=== PATIENT | female | born 1960 | race Asian ===

== ENCOUNTER 2016-06-17 16:34 | Emergency (ER) | payer BC ==
[~2016-06-17] VITALS: Ht 160 cm; Wt 75.0 kg
[~2016-06-17 16:34] MED LIST: AMOX1TAB10 PO; GUAI473L22 PO; HYDR12.53
[2016-06-17 16:42] VITALS: Ht 160 cm; Wt 75.0 kg
[2016-06-17] MEDS ORDERED: LIDOCAINE/MYLANTA 40 ML BTL PO ONE (17:00)
[2016-06-17] MEDS ORDERED: RANI150T9 PO (17:35)
[2016-06-17] MEDS ORDERED: NAPR-685 PO (17:35)
--- NOTE | 2016-06-17 17:41 | ERD ---
ER Documentation Chief Complaint Date/Time DATE: 06/17/16 TIME: 17:38 Chief Complaint C/O PRESSURE LIKE PRESSURE TODAY. HPI This 85-year-old female presents with chest pain described as a pressure that feels like is an epigastric pain that feels like it wants to come up feels in her esophagus as well. She is not taking anything for his reflux but admits she has had heartburn before that feels kind of like this. She has no shortness of breath. Denies nausea vomiting. He can drink and should blood pressure was high at home in the 170s over the 90s. ROS All systems reviewed and are negative except as per history of present illness. Medications Home Meds Active Scripts Naproxen* (Naproxen*) 375 Mg Tablet, 375 MG PO BID Y for PAIN, #20 TAB Prov:ZENAIDA ROMAN DO 06/17/16 Ranitidine Hcl* (Zantac*) 150 Mg Tablet, 150 MG PO BID, #30 TAB Prov:ZENAIDA ROMAN DO 06/17/16 Guaifenesin-Codeine Phosphate* (Guaifenesin* AC Cough Syrup) 473 Ml Liquid, 10 ML PO Q6 Y for COUGH, #120 ML Prov:NEIL HIGGINS. DISH WASHER 05/15/16 Amoxicillin/Potassium Clav (Amox-Clav 875-125 mg Tablet) 875-125 mg Tab, 1 TAB PO BID for 7 Days, #14 TAB Prov:NEIL HIGGINS. DISH WASHER 05/15/16 Reported Medications Hydrochlorothiazide (Hydrochlorothiazide) 12.5 Mg Capsule 05/27/10 Allergies Allergies: Coded Allergies: erythromycin base (Verified Allergy, Mild, SWELLING OF LIPS AND TINITUS, ) tetracycline (Verified Allergy, Mild, SWELLING OF LIPS AND TINITUS, ) PMhx/Soc History of Surgery: No Anesthesia Reaction: No Hx Neurological Disorder: No Hx Respiratory Disorders: Yes (ASTHMA) Hx Cardiac Disorders: Yes (HIGH BLOOD PRESSURE, HIGH CHOLESTEROL) Hx Psychiatric Problems: No Hx Miscellaneous Medical Probl: Yes (HTN) Hx Alcohol Use: No Hx Substance Use: No Hx Tobacco Use: No Smoking Status: Never smoker Physical Exam Vitals Vital Signs Date Time Temp Pulse Resp B/P Pulse Ox O2 Delivery O2 Flow Rate FiO2 06/17/16 16:42 97.9 81 16 143/75 100 Physical Exam Const: [] No distress Head: Atraumatic Eyes: Normal Conjunctiva ENT: Normal External Ears, Nose and Mouth. Neck: Full range of motion..~ No meningismus. Resp: Clear to auscultation bilaterally Cardio: Regular rate and rhythm, no murmurs Abd: Soft, non tender, non distended. Normal bowel sounds Skin: No petechiae or rashes Back: No midline or flank tenderness Ext: No cyanosis, or edema Neur: Awake and alert Psych: Normal Mood and Affect Results 24 hrs Current Medications Medications (Trade) Dose Ordered Sig/Amanda Route PRN Reason Start Time Stop Time Status Last Admin Dose Admin Miscellaneous Medication (Gi Cocktail (2)) 40 ml ONCE ONCE PO 06/17/16 17:00 06/17/16 17:01 DC 06/17/16 17:02 Procedures/MDM Patient hitting that her chest pain might be related to esophageal reflux. Stated that she had had similar pain before she was given a GI cocktail emergency room which resolved her chest pain. Her EKG is completely normal as no signs of ischemia. She is asymptomatic emergency room and when to discharge with primary care follow-up and instructions to obtain an echocardiogram as an outpatient. Return precautions for any chest pain also given. EKG interpretation: Normal sinus rhythm rate of 75, normal axis, no ST or T- wave changes concerning for acute ischemia, normal intervals, normal EKG Departure Diagnosis: Primary Impression: Chest pain Additional Impression: GERD (gastroesophageal reflux disease) Condition: Stable Patient Instructions: Chest Pain, Uncertain Cause, Gerd (Adult) Referrals: LISA GUALLPA MD (PCP) Additional Instructions: Call your primary care doctor TOMORROW for an appointment during the next 1-2 days. Obtain a referral for and ECHOCARDIOGRAM. See the doctor sooner or return here if your condition worsens before your appointment time. ZENAIDA ROMAN DO Jun 17, 2016 17:41
== END 2016-06-17 17:48 | disposition home or self-care (01) ==
LOC: E/R 16:34
DX: R07.89 Other chest pain (principal); K21.9 Gastro-esophageal reflux disease without esophagitis; J45.909 Unspecified asthma, uncomplicated; I10 Essential (primary) hypertension
CPT/HCPCS: 93005

== ENCOUNTER → 2016-12-10 | Outpatient (CLI) | payer BC ==
[~2016-12-10] MED LIST changes: +NAPR-685 PO; +RANI150T9 PO
[2016-12-10 11:37] LABS: BASOPHIL # 0.1 10^3/ul (0.0-0.1); BASOPHILS % 0.7 % (0.0-2.0); EOSINOPHILS # 0.2 10^3/ul (0.0-0.5); EOSINOPHILS % 3.3 % (0.0-7.0); HEMATOCRIT 38.2 % (37.0-47.0); LYMPHOCYTES # 2.7 10^3/ul (0.8-2.9); LYMPHOCYTES % 40.3 % (15.0-51.0); MEAN CORPUSCULAR HEMOGLOBIN 20.7 pg (29.0-33.0); MEAN CORPUSCULAR HGB CONC 31.4 g/dl (32.0-37.0); MEAN CORPUSCULAR VOLUME 65.9 fl (82.0-101.0); MEAN PLATELET VOLUME 10.7 fl (7.4-10.4); MONOCYTE # 0.4 10^3/ul (0.3-0.9); MONOCYTES % 6.3 % (0.0-11.0); NEUTROPHIL # 3.3 10^3/ul (1.6-7.5); NEUTROPHILS % 49.3 % (39.0-77.0); PLATELET COUNT 338 10^3/UL (140-415); RED CELL DISTRIBUTION WIDTH 15.9 % (11.5-14.5); WHITE BLOOD COUNT 6.7 10^3/ul (4.8-10.8)
[2016-12-10 12:08] LABS: ALBUMIN 4.5 g/dl (3.3-4.9); ALBUMIN/GLOBULIN RATIO 1.36; CALCIUM 9.2 mg/dl (8.4-10.2); CHOL/HDL RATIO 5.7 RATIO; CREATININE 0.72 mg/dl (0.44-1.00); POTASSIUM 3.6 mmol/L (3.5-5.1); TOTAL PROTEIN 7.8 g/dl (6.1-8.1)
== END | disposition home or self-care (01) ==
LOC: LAB 10:41
PROVIDERS: ATTEND Internal Medicine
DX: E78.5 Hyperlipidemia, unspecified (principal); R73.03 Prediabetes
CPT/HCPCS: 80053; 80061; 83036; 85025

== ENCOUNTER 2017-01-18 16:48 | Inpatient (IN) | payer BC ==
[~2017-01-18] VITALS: Ht 142.2 cm; Wt 68.5 kg
[2017-01-18] MEDS ORDERED: ASPIRIN 81 MG TAB PO STA (17:22)
[2017-01-18] MEDS ORDERED: NITROGLYCERIN 2% 1 GM OINT PKT TD STA (17:22)
[2017-01-18] MEDS ORDERED: NITROGLYCERIN (SL) 0.4 MG TAB SL PRN (17:30)
[2017-01-18 17:44] LABS: BASOPHIL # 0.1 10^3/ul (0.0-0.1); BASOPHILS % 0.9 % (0.0-2.0); EOSINOPHILS # 0.1 10^3/ul (0.0-0.5); EOSINOPHILS % 1.6 % (0.0-7.0); HEMATOCRIT 37.7 % (37.0-47.0); HEMOGLOBIN 11.9 g/dl (12.0-16.0); LYMPHOCYTES # 2.1 10^3/ul (0.8-2.9); LYMPHOCYTES % 29.8 % (15.0-51.0); MEAN CORPUSCULAR HEMOGLOBIN 20.7 pg (29.0-33.0); MEAN CORPUSCULAR HGB CONC 31.6 g/dl (32.0-37.0); MEAN CORPUSCULAR VOLUME 65.5 fl (82.0-101.0); MEAN PLATELET VOLUME 10.8 fl (7.4-10.4); MONOCYTE # 0.4 10^3/ul (0.3-0.9); NEUTROPHILS % 61.4 % (39.0-77.0); PLATELET COUNT 350 10^3/UL (140-415); RED BLOOD COUNT 5.76 10^6/ul (4.20-5.40); RED CELL DISTRIBUTION WIDTH 16.1 % (11.5-14.5); WHITE BLOOD COUNT 7.1 10^3/ul (4.8-10.8)
--- NOTE | 2017-01-18 17:45 | RADRPT ---
PROCEDURE: XR Chest. CLINICAL INDICATION: chest pain TECHNIQUE: Single frontal view of the chest was obtained COMPARISON: 05/15/2016 FINDINGS: The heart and mediastinum are within normal limits. The lungs are clear. There is no pleural effusion or pneumothorax. RPTAT: AA IMPRESSION: No acute disease. .Primitivo Cortez MD, MD Date Time Electronically viewed and signed by .Primitivo Cortez MD, on 01/18/2017 17:45 .S/
[2017-01-18] MEDS ORDERED: ATOR40TA68 PO (18:01)
[2017-01-18] MEDS ORDERED: HYDR12.58 PO (18:01)
[2017-01-18] MEDS ORDERED: LOSA50TA6 PO (18:01)
[2017-01-18] MEDS ORDERED: AMLO5TAB4 PO (18:02)
[2017-01-18 18:12] LABS: CALCIUM 9.5 mg/dl (8.4-10.2); CREATINE KINASE 189 IU/L (23-200); CREATININE 0.78 mg/dl (0.44-1.00); POTASSIUM 3.9 mmol/L (3.5-5.1)
[2017-01-18 18:25] LABS: CK-MB 1.39 ng/ml (0.0-2.4)
[2017-01-18 18:27] LABS: TROPONIN-I < 0.012 ng/ml (0.00-0.12)
[2017-01-18] MEDS ORDERED: ACETAMINOPHEN 325 MG TAB PO PRN (19:00)
[2017-01-18] MEDS ORDERED: ONDANSETRON 4 MG INJ IV PRN (19:00)
--- NOTE | 2017-01-18 19:05 | ERA ---
ER Documentation Chief Complaint Date/Time DATE: 01/18/17 TIME: 19:03 Chief Complaint Complains of chest pain / pressure with HTN HPI Patient is a 56-year-old female with hypertension who presents with chest pain. The chest pain started last night. The patient was still having chest pain today which is left-sided and pressure-like. The pain comes and goes. The patient has had no treatment as of yet. The patient is working as a nurse here at the hospital. Upon review of old medical records the patient has multiple visits to the ER for various complaints. The patient's primary doctor is Dr. Matias. ROS All systems reviewed and are negative except as per history of present illness. Medications Home Meds Reported Medications Amlodipine Besylate* (Norvasc*) 5 Mg Tablet, 5 MG PO DAILY, TAB 01/18/17 Atorvastatin* (Atorvastatin*) 40 Mg Tablet, 40 MG PO QHS, #30 TAB 01/18/17 Losartan Potassium* (Losartan Potassium*) 50 Mg Tablet, 50 MG PO DAILY, TAB 01/18/17 Hydrochlorothiazide* (Hydrochlorothiazide*) 12.5 Mg Tablet, 12.5 MG PO DAILY, # 30 TAB 01/18/17 Discontinued Reported Medications Hydrochlorothiazide (Hydrochlorothiazide) 12.5 Mg Capsule 05/27/10 Discontinued Scripts Naproxen* (Naproxen*) 375 Mg Tablet, 375 MG PO BID Y for PAIN, #20 TAB Prov:ABELZENAIDA DO 06/17/16 Ranitidine Hcl* (Zantac*) 150 Mg Tablet, 150 MG PO BID, #30 TAB Prov:ZENAIDA ROMAN DO 06/17/16 Guaifenesin-Codeine Phosphate* (Guaifenesin* AC Cough Syrup) 473 Ml Liquid, 10 ML PO Q6 Y for COUGH, #120 ML Prov:NEIL HIGGINS. MEDICAL CONCIERGE 05/15/16 Amoxicillin/Potassium Clav (Amox-Clav 875-125 mg Tablet) 875-125 mg Tab, 1 TAB PO BID for 7 Days, #14 TAB Prov:NEIL HIGGINS. MEDICAL CONCIERGE 05/15/16 Allergies Allergies: Coded Allergies: erythromycin base (Verified Allergy, Mild, SWELLING OF LIPS AND TINITUS, ) tetracycline (Verified Allergy, Mild, SWELLING OF LIPS AND TINITUS, 01/18/17 ) PMhx/Soc History of Surgery: No Anesthesia Reaction: No Hx Neurological Disorder: No Hx Respiratory Disorders: Yes (ASTHMA) Hx Cardiac Disorders: Yes (HIGH BLOOD PRESSURE, HIGH CHOLESTEROL) Hx Psychiatric Problems: No Hx Miscellaneous Medical Probl: Yes (HTN) Hx Alcohol Use: No Hx Substance Use: No Hx Tobacco Use: No Smoking Status: Never smoker FmHx Family History: coronary disease Physical Exam Vitals Vital Signs Date Time Temp Pulse Resp B/P Pulse Ox O2 Delivery O2 Flow Rate FiO2 01/18/17 18:33 98.6 77 20 131/72 96 Room Air 01/18/17 17:30 Nasal Cannula 1 01/18/17 16:52 98.6 96 20 179/85 95 Physical Exam Const: No acute distress Head: Atraumatic Eyes: Normal Conjunctiva ENT: Normal External Ears, Nose and Mouth. Neck: Full range of motion..~ No meningismus. Resp: Clear to auscultation bilaterally Cardio: Regular rate and rhythm, no murmurs Abd: Soft, non tender, non distended. Normal bowel sounds Skin: No petechiae or rashes Back: No midline or flank tenderness Ext: No cyanosis, or edema Neur: Awake and alert Psych: Normal Mood and Affect Result Diagram: 01/18/17 1730 01/18/17 173 Results 24 hrs Laboratory Tests Test 01/18/17 17:30 White Blood Count 7.110^3/ul Red Blood Count 5.7610^6/ul Hemoglobin 11.9g/dl Hematocrit 37.7% Mean Corpuscular Volume 65.5fl Mean Corpuscular Hemoglobin 20.7pg Mean Corpuscular Hemoglobin Concent 31.6g/dl Red Cell Distribution Width 16.1% Platelet Count 81548^3/UL Mean Platelet Volume 10.8fl Neutrophils % 61.4% Lymphocytes % 29.8% Monocytes % 6.0% Eosinophils % 1.6% Basophils % 0.9% Nucleated Red Blood Cells % 0.0/100WBC Neutrophils # (Manual) 4.310^3/ul Lymphocytes # 2.110^3/ul Monocytes # 0.410^3/ul Eosinophils # 0.110^3/ul Basophils # 0.110^3/ul Nucleated Red Blood Cells # 0.010^3/ul Sodium Level 143mmol/L Potassium Level 3.9mmol/L Chloride Level 104mmol/L Carbon Dioxide Level 26mmol/L Anion Gap 17 Blood Urea Nitrogen 12mg/dl Creatinine 0.78mg/dl Glucose Level 119mg/dl Calcium Level 9.5mg/dl Creatine Kinase 189IU/L Creatine Kinase Index 0.7 Creatinine Kinase MB (Mass) 1.39ng/ml Troponin I < 0.012ng/ml Current Medications Medications (Trade) Dose Ordered Sig/Amanda Route PRN Reason Start Time Stop Time Status Last Admin Dose Admin Aspirin (Aspirin) 162 mg ONCE STAT PO 01/18/17 17:22 01/18/17 17:23 DC 01/18/17 17:48 Nitroglycerin (Nitroglycerin 2% Oint) 1 inch ONCE STAT TD 01/18/17 17:22 01/18/17 17:23 DC 01/18/17 17:48 Nitroglycerin (Nitroglycerin (Sl Tab) 0.4 Mg) 1 tab Q5M UP TO 3 DOSES PRN SL CHEST PAIN 01/18/17 17:30 01/18/17 17:49 Ondansetron HCl (Zofran Inj) 4 mg ER BRIDGE PRN IV NAUSEA AND/OR VOMITING 01/18/17 19:00 01/19/17 18:59 Acetaminophen (Tylenol Tab) 650 mg ER BRIDGE PRN PO MILD PAIN/FEVER 01/18/17 19:00 01/19/17 18:59 Procedures/MDM EKG #1 read by me: Rate/Rhythm: Regular rate and rhythm at a rate of 89 Intervals: Normal Impression: No evidence of ischemia or arrhythmia EKG #2 read by me: Rate/Rhythm: Regular rate and rhythm at a rate of 79 Intervals: Normal Impression: No evidence of ischemia or arrhythmia Chest x-ray shows no obvious pneumonia or pneumothorax per radiology. Patient is a 56-year-old female with hypertension who presents with chest pain. I am concerned about possible acute coronary syndrome. The patient was given aspirin nitroglycerin. I doubt pneumonia, pneumothorax, pulmonary embolism, or aortic dissection. The patient will be admitted to the care of the primary doctor Dr. Matias. The patient will be admitted to a telemetry bed. Departure Diagnosis: Primary Impression: Chest pain Qualified Code: R07.9 - Chest pain, unspecified type Condition: ASHLEIGH Lyon MD Jan 18, 2017 19:05
[2017-01-18 21:00] VITALS: TEMP 98.6
[2017-01-19] VITALS (12 sets, daily range): BP systolic 108–131; BP diastolic 58–73; PULSE 63–83; RESP 18–20; Ht 142.2 cm; Wt 68.5 kg
[2017-01-19] MEDS ORDERED: NITROGLYCERIN (SL) 0.4 MG TAB SL PRN (00:30)
[2017-01-19] MEDS ORDERED: morphine 4 MG/ML VIAL IV PRN (00:30)
[2017-01-19] MEDS ORDERED: ZOLPIDEM 5 MG TAB PO PRN (00:30)
[2017-01-19] MEDS ORDERED: ATORVASTATIN 40 MG TAB PO SCH (00:45)
[2017-01-19 07:09] LABS: BASOPHIL # 0.1 10^3/ul (0.0-0.1); BASOPHILS % 0.7 % (0.0-2.0); EOSINOPHILS # 0.3 10^3/ul (0.0-0.5); EOSINOPHILS % 2.7 % (0.0-7.0); HEMATOCRIT 36.1 % (37.0-47.0); HEMOGLOBIN 11.4 g/dl (12.0-16.0); LYMPHOCYTES # 2.9 10^3/ul (0.8-2.9); LYMPHOCYTES % 29.5 % (15.0-51.0); MEAN CORPUSCULAR HEMOGLOBIN 20.6 pg (29.0-33.0); MEAN CORPUSCULAR HGB CONC 31.6 g/dl (32.0-37.0); MEAN CORPUSCULAR VOLUME 65.3 fl (82.0-101.0); MEAN PLATELET VOLUME 10.9 fl (7.4-10.4); MONOCYTE # 0.7 10^3/ul (0.3-0.9); MONOCYTES % 6.7 % (0.0-11.0); NEUTROPHILS % 60.1 % (39.0-77.0); PLATELET COUNT 335 10^3/UL (140-415); RED BLOOD COUNT 5.53 10^6/ul (4.20-5.40); RED CELL DISTRIBUTION WIDTH 16.9 % (11.5-14.5); WHITE BLOOD COUNT 9.7 10^3/ul (4.8-10.8)
[2017-01-19 07:31] LABS: CALCIUM 8.7 mg/dl (8.4-10.2); CREATININE 0.74 mg/dl (0.44-1.00); MAGNESIUM 2.4 mg/dl (1.7-2.5); POTASSIUM 3.7 mmol/L (3.5-5.1)
[2017-01-19 08:21] LABS: CREATINE KINASE 213 IU/L (23-200)
[2017-01-19] MEDS: ASPIRIN (EC) 81 MG TAB PO SCH (08:39)
[2017-01-19] MEDS: ACETAMINOPHEN 500 MG TAB PO PRN ×2 (08:39→16:34)
[2017-01-19 08:40] LABS: CK-MB 1.07 ng/ml (0.0-2.4)
[2017-01-19] MEDS: HYDROCHLOROTHIAZIDE 12.5 MG CAP PO SCH (08:40)
[2017-01-19] MEDS: LOSARTAN 50 MG TAB PO SCH (08:40)
[2017-01-19] MEDS: AMLODIPINE 5 MG TAB PO SCH (08:40)
[2017-01-19] MEDS: ENOXAPARIN 30 MG/0.3 ML SYG SC SCH (08:44)
[2017-01-19 09:00] LABS: TROPONIN-I < 0.012 ng/ml (0.00-0.12)
--- NOTE | 2017-01-19 09:40 | RADRPT ---
Vent Rate: 73 bpm RR Interval: 0 msec [place] Interval: 144 msec QRS Duration: 82 msec QT Interval: 428 msec QTC Interval: 471 msec P-R-T [place]: 22 - 17 - 21 degrees Normal sinus rhythm Septal infarct , age undetermined Abnormal ECG Electronically Signed By: Enrike Hernández [id number]
--- NOTE | 2017-01-19 14:13 | CONS ---
Date/Time of Note Date/Time of Note DATE: 01/19/17 TIME: 14:02 INPATIENT CONSULTATION REQUESTING PHYSICIAN: Dr. Matias REASON FOR CONSULT: Chest pain HISTORY OF PRESENT ILLNESS: 56-year-old [place] female with history 1. Hypertension. 2. Adult onset asthma. 3. Hyperlipidemia. 4. Dyspnea on exertion. 5. Obesity. 6. Prediabetes. Patient with a long history of several months of atypical pinpoint nonexertional nonpleuritic chest pains left-sided in nature lasting for seconds. No exertional pleuritic component as mentioned no associated dyspnea or diaphoresis. She had an episode while at work here at [employer] [facility] [facility] [employer] and her coworkers noticed that she was in pain checked her blood pressure which was elevated and brought her to the emergency room. She did see my associate Dr. Fernandez in August of this year but never followed up for stress testing or further workup. She currently feels well denies any chest pains dyspnea palpitations PND orthopnea syncope near syncope or leg edema. She admits to not exercising. RISK FACTORS Pertinent for postmenopausal, prediabetes, hypertension, hyperlipidemia, there is no gout smoking or family history of early heart disease. PAST MEDICAL HISTORY: 1. Hypertension. 2. Adult onset asthma. 3. Hyperlipidemia. 4. Prediabetes. 5. Obesity. PAST SURGICAL HISTORY: D&C over 20 years ago. MEDICATIONS: Was on hydrochlorothiazide 12.5 mg a day, losartan 50 mg a day, Lipitor 80 mg a day, amlodipine 5 mg a day, baby aspirin, and currently is on Lovenox 30 mg subcu daily. ALLERGIES: Erythromycin, tetracycline. 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 FAMILY HISTORY: Denies any early coronary disease family history. REVIEW OF SYSTEMS: Patient denied any fevers, chills, weight loss, nausea, vomiting, diarrhea, constipation, cough, hemoptysis, dysuria, hematuria, nocturia, any neurologic symptoms, headache, any PND, orthopnea, leg edema, or palpitations. All other review of systems were normal. Patient does complain of dyspnea and exertion. 14 point review of systems otherwise normal. PHYSICAL EXAMINATION: Vital signs please see chart. HEENT; no JVD, no HJR, carotids 2 over 4+ without bruits. Chest: Clear to auscultation and percussion, no rales, wheezes or rhonchi. Cardiac: S4, S1, S2 with normal physiologic splitting, 1/6 systolic ejection murmur, no rub click or diastolic murmur noted. Abdominal: Bowel sounds positive, soft nontender, no abdominal bruit noted, no hepatosplenomegaly. Extremities: No cyanosis, clubbing, or edema. Negative Homans sign or palpable cords. Pulses: 2/4 pulses diffusely no bruits noted. ADDITIONAL DATA: Normal CBC, electrolytes, BUN, creatinine, hemoglobin A1c elevated 6.3, troponin 2 negative. Chest x-ray from 18 January cardiomegaly no heart failure no wide mediastinum. Telemetry sinus rhythm no other ectopy. EKG from this morning revealed sinus rhythm poor R-wave progression no acute changes however from prior EKGs from 18 January. ASSESSMENT: 1. Atypical chest pain. 2. Hypertension. 3. Hyperlipidemia on statin. 4. Prediabetes. 5. Obesity. 6. Adult onset asthma. Patient symptoms appear fairly atypical however she has multiple risk factors and is not returned to the office to follow-up with her bran mixer Dr. Fernandez. At this point I would continue on her current regimen check a fasting lipid panel on her and check an echocardiogram and a Lexiscan stress test. Case has been discussed with Dr. Matias. PLAN: 1. 2D echocardiogram. 2. Lexiscan stress test tomorrow. 3. Continue aspirin statin hydrochlorothiazide losartan and amlodipine. 4. Check fasting lipid panel LDL should be less than 70 with diabetes. MEGHAN MALAGON MD Jan 19, 2017 14:12
--- NOTE | 2017-01-19 14:34 | RADRPT ---
PROCEDURE: US DVT. CLINICAL INDICATION: Left lower extremity pain and swelling. TECHNIQUE: Multiple longitudinal and transverse images of the left lower extremity veins were obta ined with sands scale and color Doppler imaging. 2D grayscale measurements with compression, color D oppler flow, and augmentation was performed. The calf veins were interrogated as well. COMPARISON: No prior studies are available for comparison. FINDINGS: The left common femoral, superficial femoral and popliteal veins are normally compressible throughou t. Color flow demonstrates normal filling of the vessel. Normal waveforms are visualized and there is normal response to augmentation. The calf veins are visualized and are equally unremarkable. IMPRESSION: 1. No evidence of a deep vein thrombosis involving the left lower extremity. RPTAT: QQ .Sal Sanches MD, MD Date Time Electronically viewed and signed by .Sal Sanches MD, MD on 01/19/2017 14:34 .d/
[2017-01-19] MEDS ORDERED: MAGNESIUM HYDROXIDE 30ML CUP PO PRN (17:00)
--- NOTE | 2017-01-19 17:02 | HP ---
DATE OF ADMISSION: 01/18/2017 Patient is a 56-year-old who is a known hypertensive, recently found to be prediabetic, presenting with a 1-week history of recurrent left-sided chest discomfort described as pressure. It started a week ago, along with pain in the left leg, and yesterday it got worse. The patient states it radiates to the back, with no associated shortness of breath, but some palpitations. It lasts about 30 seconds or so. The patient was seen in the emergency room and was admitted. The patient has had prior evaluations in the emergency room for atypical chest pain. MEDICATIONS: Include Norvasc 5 mg daily, atorvastatin 40 mg p.o. daily. The patient has not been compliant with taking statins. Losartan 50 mg daily, hydrochlorothiazide 12.5 mg a day, aspirin 81 mg p.o. daily. ALLERGIES: TO ERYTHROMYCIN AND TETRACYCLINE. REVIEW OF SYSTEMS: Head: No history of headaches, focal weakness or numbness. EYES: No blurry vision or glaucoma. ENT: Noncontributory. NECK: No history of thyroid disease. CHEST: Prior history of bronchial asthma. HEART: History of atypical chest pain. The patient has seen Dr. Fernandez for a cardiology evaluation. The patient was due to have a stress test, but has not had it done, as was unable to make it. GASTROINTESTINAL: No constipation, diarrhea, change of bowel habits. GENITOURINARY: No dysuria, hematuria, kidney stones. FAMILY HISTORY: Mother has asthma, had stroke at age 54. The patient has four brothers and three sisters, all healthy. One sister has thalassemia. PHYSICAL EXAMINATION: The patient is an average-built female, who is presently in no acute distress. Does not appear anxious. VITAL SIGNS: Temperature 97.7, blood pressure 127/66, pulse ox 96 percent on room air. HEENT: Head normocephalic. No pallor, cyanosis, or icterus. Tongue is moist. NECK: Supple. No thyromegaly. No adenopathy. CHEST: Decreased breath sounds at bases. HEART: S1, S2. No definite gallops. ABDOMEN: Soft, nontender. No hepatosplenomegaly. EXTREMITIES: No edema. Homans sign is negative. NEUROLOGIC: No localizing or lateralizing signs. PELVIC: Deferred per patient request. BREAST: Deferred per patient request. DATA: WBC count 7.1, hematocrit 37.7, MCV of 65.5, platelet count 350,000. Sodium 143, potassium 3.9. CK 189 on 07/02. Troponin x2 less than 0.012. EKG shows normal sinus rhythm, septal infarct, age undetermined. The patient also had a recent lipid panel on 12/10 that showed cholesterol 223, LDL of 163, HDL 39. Hemoglobin A1c 6.3. The patient had been advised at the time to take statins on regular basis. IMPRESSION: 1. Atypical chest pain. Patient has risk factors for coronary artery disease, with still persistent hyperlipidemia. 2. Hypertension. 3. Prediabetes. PLAN: We will DC atorvastatin, start the patient on Crestor for better lipid control. Continue aspirin. We will also obtain a Doppler study of the left lower extremity to rule out DVT, as her initial presentation was left lower extremity pain along with chest pain. CRP has been ordered. Results pending. Will request [____] for cardiology evaluation. The patient likely will need a stress test. Dictated By: Beny Matias MD /dorothea/shaw /Document#: [id number]
[2017-01-19] MEDS ORDERED: ATORVASTATIN 80 MG TAB PO SCH (21:00)
[2017-01-19] MEDS: DOCUSATE SODIUM 100 MG CAP PO SCH (21:14)
[2017-01-20] VITALS (9 sets, daily range): BP systolic 128–172; BP diastolic 64–78; PULSE 66–101; RESP 17–18
[2017-01-20 07:20] LABS: BASOPHIL # 0.1 10^3/ul (0.0-0.1); BASOPHILS % 1.1 % (0.0-2.0); EOSINOPHILS # 0.3 10^3/ul (0.0-0.5); EOSINOPHILS % 3.6 % (0.0-7.0); HEMATOCRIT 38.1 % (37.0-47.0); HEMOGLOBIN 11.6 g/dl (12.0-16.0); LYMPHOCYTES # 2.7 10^3/ul (0.8-2.9); LYMPHOCYTES % 36.7 % (15.0-51.0); MEAN CORPUSCULAR HEMOGLOBIN 19.9 pg (29.0-33.0); MEAN CORPUSCULAR HGB CONC 30.4 g/dl (32.0-37.0); MEAN CORPUSCULAR VOLUME 65.4 fl (82.0-101.0); MEAN PLATELET VOLUME 10.8 fl (7.4-10.4); MONOCYTE # 0.6 10^3/ul (0.3-0.9); MONOCYTES % 7.4 % (0.0-11.0); NEUTROPHILS % 50.9 % (39.0-77.0); PLATELET COUNT 315 10^3/UL (140-415); RED BLOOD COUNT 5.83 10^6/ul (4.20-5.40); RED CELL DISTRIBUTION WIDTH 16.9 % (11.5-14.5); WHITE BLOOD COUNT 7.4 10^3/ul (4.8-10.8)
[2017-01-20 08:28] LABS: CALCIUM 9.3 mg/dl (8.4-10.2); CHOL/HDL RATIO 4.3 RATIO; CREATININE 0.64 mg/dl (0.44-1.00); MAGNESIUM 2.2 mg/dl (1.7-2.5); POTASSIUM 4.3 mmol/L (3.5-5.1)
[2017-01-20 08:32] LABS: THYROID STIMULATING HORMONE 2.38 MIU/L (0.465-4.680)
[2017-01-20] MEDS ORDERED: REGADENOSON 0.4 MG/5 ML SYG ONE ×2 (08:34→10:21)
--- NOTE | 2017-01-20 09:18 | RADRPT ---
Vent Rate: 76 bpm RR Interval: 0 msec [place] Interval: 142 msec QRS Duration: 82 msec QT Interval: 410 msec QTC Interval: 461 msec P-R-T [place]: 47 - 68 - 53 degrees Sinus rhythm with frequent premature ventricular complexes Otherwise normal ECG Electronically Signed By: Enrike Hernández [id number]
--- NOTE | 2017-01-20 11:00 | CONS ---
Date/Time of Note Date/Time of Note DATE: 01/20/17 TIME: 10:57 Assessment/Plan Assessment/Plan Chief Complaint/Hosp Course 56 yof w/ htn, hld, and pre-dM who presented with atypical chest pain. Her symptoms were sharp chest pain that lasted seconds. Seems more likely to be musculoskeletal. She is currently pain free. Plan for lexiscan today. If negative, may be discharged from a cardiac standpoint. continue meds. Problems: Consultation Date/Type/Reason Admit Date/Time Jan 18, 2017 at 23:50 Type of Consultation: cardiololgy Reason for Consultation chest pain 24 HR Interval Summary Free Text/Dictation Denies cp or sob. Exam/Review of Systems Vital Signs Vitals Vital Signs Date Time Temp Pulse Resp B/P Pulse Ox O2 Delivery O2 Flow Rate FiO2 01/20/17 08:04 85 01/20/17 07:22 98.3 18 172/78 98 01/18/17 23:15 Room Air 01/18/17 17:30 1 Intake and Output 01/19/17 01/19/17 01/20/17 15:00 23:00 07:00 Intake Total 900 ml 500 ml Balance 900 ml 500 ml Exam Constitutional: alert, No distress Respiratory: clear to auscultation Cardiovascular: regular rate and rhythm, No systolic murmur Extremities: No edema Results Result Diagram: 01/20/17 0635 01/20/17 0635 Results 24 hrs Laboratory Tests Test 01/20/17 06:35 White Blood Count 7.4 # Red Blood Count 5.83 H Hemoglobin 11.6 L Hematocrit 38.1 Mean Corpuscular Volume 65.4 L Mean Corpuscular Hemoglobin 19.9 L Mean Corpuscular Hemoglobin Concent 30.4 L Red Cell Distribution Width 16.9 H Platelet Count 315 Mean Platelet Volume 10.8 H Neutrophils % 50.9 Lymphocytes % 36.7 Monocytes % 7.4 Eosinophils % 3.6 Basophils % 1.1 Nucleated Red Blood Cells % 0.0 Neutrophils # (Manual) 3.8 Lymphocytes # 2.7 Monocytes # 0.6 Eosinophils # 0.3 Basophils # 0.1 Nucleated Red Blood Cells # 0.0 Sodium Level 142 Potassium Level 4.3 Chloride Level 104 Carbon Dioxide Level 26 Anion Gap 16 Blood Urea Nitrogen 14 Creatinine 0.64 Glucose Level 109 Calcium Level 9.3 Magnesium Level 2.2 Troponin I < 0.012 Triglycerides Level 121 Cholesterol Level 165 LDL Cholesterol, Calculated 103 HDL Cholesterol 38 Cholesterol/HDL Ratio 4.3 Thyroid Stimulating Hormone (TSH) 2.380 Thyroxine (T4) 7.5 Medications Medications Current Medications Aspirin (Halfprin) 81 mg DAILY PO Last administered on 01/19/17 08:39; Admin Dose 81 MG; Start 01/19/17 at 09:00 Zolpidem Tartrate (Ambien) 5 mg HS PRN PO INSOMNIA; Start 01/19/17 at 00:30 Morphine Sulfate (morphine) 4 mg Q4H PRN IV SEVERE PAIN LEVEL 7-10; Start at 00:30 Enoxaparin Sodium (Lovenox) 30 mg DAILY SC ; Start 01/19/17 at 09:00 Nitroglycerin (Nitroglycerin (Sl Tab) 0.4 Mg) 1 tab Q5M PRN SL ANGINA; Start at 00:30 Amlodipine Besylate (Norvasc) 5 mg DAILY PO Last administered on 01/19/17 08:40 ; Admin Dose 5 MG; Start 01/19/17 at 09:00 Hydrochlorothiazide (Hydrochlorothiazide) 12.5 mg DAILY PO Last administered on 01/19/17 08:40; Admin Dose 12.5 MG; Start 01/19/17 at 09:00 Losartan Potassium (Cozaar) 50 mg DAILY PO Last administered on 01/19/17 08:40 ; Admin Dose 50 MG; Start 01/19/17 at 09:00 Acetaminophen (Tylenol Tab) 500 mg Q4H PRN PO PAIN AND OR ELEVATED TEMP Last administered on 01/19/17 16:34; Admin Dose 500 MG; Start 01/19/17 at 08:30 Atorvastatin Calcium (Lipitor) 80 mg HS PO Last administered on 01/19/17 21:14 ; Admin Dose 80 MG; Start 01/19/17 at 21:00 Docusate Sodium (Colace) 100 mg BID PO Last administered on 01/19/17 21:14; Admin Dose 100 MG; Start 01/19/17 at 21:00 Magnesium Hydroxide (Milk Of Mag) 30 ml QHS PRN PO constipation; Start 01/19/17 at 17:00 LORENZO ARANGO Jan 20, 2017 11:00
--- NOTE | 2017-01-20 11:23 | QN ---
Documentation Comment Brief Lexiscan Report - see dictation for full report Indication - chest pain Baseline ECG - nsr @ 88, no ischemic ST changes Regadenoson was infused per protocol. Pt had chest pressure (4/10), which was different than her chief complaint. Pt also felt cold and had abdominal discomfort. She developed sinus tachycardia to [address] 0[address] depression in leads II, III, V3-V6. Her symptoms, tachycardia and ECG changes all resolved during recovery. Impression: 1. Pt had non-specific symptoms during the regadenoson infusion. No ischemic ST changes noted. 2. See separate report from nuclear cardiology regarding interpretation of nuclear images. LORENZO ARANGO Jan 20, 2017 11:21
--- NOTE | 2017-01-20 11:35 | RADRPT ---
PROCEDURE: Lexiscan myocardial perfusion study CLINICAL INDICATION: 56 -year-old patient complaining of chest pain. TECHNIQUE: Lexiscan 0.4 mg intravenously separate acquisition gated myocardial perfusion SPECT usi ng Tc 99m Myoview 30.0 mCi intravenously at stress and Tc-99m Myoview, 10.0 mCi intravenously at res t was performed using the rest/stress sequence. Poststress Myoview SPECT images were obtained in th e supine position. COMPARISON: No prior studies. FINDINGS: Perfusion images reveal no evidence of perfusion defects. Lexiscan post stress gated SPECT images demonstrate no wall motion abnormalities. IMPRESSION: 1. No evidence of perfusion defects. 2. No wall motion abnormalities. 3. The left ventricle ejection fraction at stress is greater than 70%. RPTAT: QQ .Loretta Seo MD, MD Date Time Electronically viewed and signed by .Loretta Seo MD, MD on 01/20/2017 11:34 .L/
[2017-01-20] MEDS: HYDROCHLOROTHIAZIDE 12.5 MG CAP PO SCH (11:44)
[2017-01-20] MEDS: ASPIRIN (EC) 81 MG TAB PO SCH (11:44)
[2017-01-20] MEDS: DOCUSATE SODIUM 100 MG CAP PO SCH (11:44)
[2017-01-20] MEDS: ENOXAPARIN 30 MG/0.3 ML SYG SC SCH (11:44)
[2017-01-20] MEDS: LOSARTAN 50 MG TAB PO SCH (11:45)
[2017-01-20] MEDS: AMLODIPINE 5 MG TAB PO SCH (11:45)
[2017-01-20] MEDS ORDERED: ASPI-664 PO (14:54)
--- NOTE | 2017-01-20 18:22 | DS ---
DATE OF ADMISSION: 01/18/2017 DATE OF DISCHARGE: 01/20/2017 FINAL DIAGNOSES: 1. Atypical chest pain. No evidence of acute coronary disease. LexiScan negative for ischemia. 2. Hypertension. 3. Prediabetes. 4. Left leg pain. No evidence of deep venous thrombosis. 5. Hyperlipidemia. HOSPITAL COURSE: The patient is a 56-year-old lady who is a known hypertensive, recently found to be pre-diabetic, presenting with 1-week history of recurrent left-sided chest discomfort described as pressure. The patient was evaluated Emergency room and was admitted. The patient also had left leg pain and Doppler venous study was negative for deep vein thrombosis. The patient has not been taking the atorvastatin regularly. Her LDL was around 160 recently. Her hemoglobin A1c is 6.3, patient did not want to take metformin, and has been advised to lose weight. The patient was found to be in no acute distress. CHEST: Exam clear with decreased breath sounds at bases. HEART: S1, S2. No definite gallops. Troponin x1 was negative. The patient was seen by Dr. Corrigan , and then by Dr. Badillo. The LexiScan was negative for ischemia and the patient was discharged home in much improved condition, on amlodipine 5 mg orally daily, aspirin 81 mg daily. Atorvastatin 80 mg orally daily, hydrochlorothiazide 12.5 mg daily, losartan 50 mg orally daily. FOLLOWUP: The patient will be followed in my office over the course of next 2 weeks. If the blood glucose level is 2 not improved will impressed upon the patient takes metformin and encourage weight loss. DISCHARGE CONDITION: Much improved. Dictated By: Beny Matias MD /dorothea/trevin /Document#: [id number] ESHA
--- NOTE | 2017-01-21 12:18 | RADRPT ---
Echocardiogram Report Patient Name: ARMAND VERA Gender: Female Date: 1960 Study Date: 20-Jan-2017 Harp Repairer: KEISHA Location: I Ref. Physician: MEGHAN MALAGON Quality: Good Procedures: Transthoracic echocardiogram with complete 2D, M-Mode, and Doppler examination. Indications: Murmur. 2D/M Mode Doppler Measurement Value Normal Ranges Measurement Value Normal Ranges AoR Diam MM 2.6 cm AV Peak Jesús 1.4 m/sec ACS MM 1.7 cm AV Peak PG 7.8 mmHg LVIDd 2D 3.7 3.5 - 5.6 cm LVOT Peak Jesús 1.0 m/sec LVIDs 2D 2.7 2.1 - 4.1 cm LVOT Peak PG 3.8 mmHg LVPWd 2D 1.4 0.6 - 1.1 cm MV E Peak Jesús 0.6 m/sec IVSd 2D 1.3 0.6 - 1.1 cm MV A Peak Jesús 0.7 m/sec EDV 2D 58.7 cm3 MV E/A 0.8 ESV 2D 19.3 cm3 MV Decel Time 157 msec LA Dimen 2D 3.8 2.3 - 4.0 cm MV Decel [place] 4 MV E/A 0.8 PV Peak Jesús 0.9 m/sec PV Peak PG 3.0 mmHg Findings Left Ventricle: Normal left ventricular systolic function. Normal left ventricular cavity size. Mild concentric left ventricular hypertrophy. Ejection fraction is visually estimated at 60 %. Tissue Doppler/Mitral Doppler indices are consistent with impaired relaxation (Stage I diastolic dysfunction). E/E`=7. E`=0 cm/s. Right Ventricle: Normal right ventricular size. Normal right ventricular systolic function. Left Atrium: The left atrium is normal in size. Right Atrium: The right atrium is normal in size. Atrial Septum: Normal atrial septum. Mitral Valve: Normal appearance and function of the mitral valve with trace physiologic regurgitation. Aortic Valve: Normal appearance of the aortic valve. No significant aortic stenosis or insufficiency. Tricuspid Valve: Normal appearance of the tricuspid valve. No evidence of tricuspid regurgitation. Pulmonic Valve: Normal pulmonic valve appearance. There is trace pulmonic regurgitation. Pericardium: Normal pericardium with no significant pericardial effusion. Aorta: Normal aortic root. IVC: Normal size and normal respiratory collapse consistent with normal right atrial pressure. Pulmonary Artery: Normal pulmonary artery size. Conclusions 1.1. Normal left ventricular function with EF 60%. No focal wall motion abnormalities seen. 2.2. Normal right ventricular size and function. 3.3. Abnormal diastolic function. 4.4. No severe valvular disease. 5.5. Cannot assess pulmonary pressures due to lack of tricuspid regurgitation. (Likely normal). 6.6. No pericardial effusion. Electronically Signed By: Jamar Ellitot 21-Jan-2017 12:17:36 -0700 Patient Name: ARMAND VERA Study Date: 20-Jan-2017 [id number]
--- NOTE | 2017-01-21 13:05 | PRO ---
DATE OF PROCEDURE: 01/20/2017 PROCEDURE PERFORMED: LEXISCAN STRESS TEST. INDICATION: Chest pain. DESCRIPTION OF PROCEDURE: Baseline EKG shows normal sinus rhythm at 88. No ischemic ST changes. Regadenoson was infused per protocol. The patient had mild chest pressure 4/10 which was different than her presenting chest pressure. She also felt cold and had abdominal discomfort during the Regadenoson infusion. She developed sinus tachycardia to 136 and had up-sloping 0.[address] depressions in lead 2, 3, V3 to V6. Her symptoms of tachycardia and EKG changes all resolved during recovery. IMPRESSION: 1. The patient had nonspecific symptoms during Regadenoson infusion. No ischemic ST changes were noted. 2. See separate report for nuclear cardiology regarding interpretation of nuclear images. Dictated By: Jamar Elliott MD /dorothea/trevin /Document#: [id number]
== END 2017-01-20 16:07 | disposition home or self-care (01) | DRG 313 ==
LOC: E/R 16:48 → TEL 23:50
PROVIDERS: ADMIT Internal Medicine; ATTEND Internal Medicine
PROC: C22G1ZZ Tomographic (Tomo) Nuclear Medicine Imaging of Myocardium using Technetium 99m (Tc-99m) (ICD-10-PCS; principal; 2017-01-20)
PROC: 4A02XM4 Measurement of Cardiac Total Activity, External Approach (ICD-10-PCS; 2017-01-20)
PROC: 3E033HZ Introduction of Radioactive Substance into Peripheral Vein, Percutaneous Approach (ICD-10-PCS; 2017-01-20)
DX: R07.89 Other chest pain (principal); I10 Essential (primary) hypertension; E78.5 Hyperlipidemia, unspecified; J45.909 Unspecified asthma, uncomplicated; E66.9 Obesity, unspecified; Z68.33 Body mass index [BMI] 33.0-33.9, adult; R73.03 Prediabetes; M79.605 Pain in left leg
CPT/HCPCS: 36415; 71010; 78452; 80048; 80061; 82550; 82553; 83735; 84436; 84443; 84484; 85025; 93005; 93017; 93306; 93971; A9500; A9505; J1650; J2785

== ENCOUNTER 2017-03-02 14:16 | Emergency (ER) | payer BC ==
[~2017-03-02] VITALS: Ht 157.5 cm; Wt 67.5 kg
[~2017-03-02 14:16] MED LIST changes: +AMLO5TAB4 PO; -AMOX1TAB10 PO; +ASPI-664 PO; +ATOR40TA68 PO; -GUAI473L22 PO; -HYDR12.53; +HYDR12.58 PO; +LOSA50TA6 PO; -NAPR-685 PO; -RANI150T9 PO
[2017-03-02 14:19] VITALS: Ht 157.5 cm; Wt 67.5 kg
[2017-03-02 16:17] LABS: ABNORMAL IP MESSAGE 1; BASOPHILS % 0.6 % (0.0-2.0); EOSINOPHILS # 0.2 10^3/ul (0.0-0.5); HEMATOCRIT 35.7 % (37.0-47.0); HEMOGLOBIN 10.9 g/dl (12.0-16.0); LYMPHOCYTES # 2.3 10^3/ul (0.8-2.9); LYMPHOCYTES % 34.2 % (15.0-51.0); MEAN CORPUSCULAR HEMOGLOBIN 20.2 pg (29.0-33.0); MEAN CORPUSCULAR HGB CONC 30.5 g/dl (32.0-37.0); MEAN CORPUSCULAR VOLUME 66.1 fl (82.0-101.0); MEAN PLATELET VOLUME 11.7 fl (7.4-10.4); MONOCYTE # 0.5 10^3/ul (0.3-0.9); MONOCYTES % 6.8 % (0.0-11.0); NEUTROPHIL # 3.6 10^3/ul (1.6-7.5); NEUTROPHILS % 55.1 % (39.0-77.0); PLATELET COUNT 244 10^3/UL (140-415); RED CELL DISTRIBUTION WIDTH 17.3 % (11.5-14.5); WHITE BLOOD COUNT 6.6 10^3/ul (4.8-10.8)
[2017-03-02 16:22] LABS: POSITIVE DIFF @See below
[2017-03-02 16:36] LABS: INR 0.92; PROTIME 12.4 Sec (12.2-14.2)
[2017-03-02 16:37] LABS: PARTIAL THROMBOPLASTIN TIME 31.6 Sec (25.0-35.0)
[2017-03-02 16:52] LABS: ALANINE AMINOTRANSFERASE 47 IU/L (13-69); ALBUMIN 4.2 g/dl (3.3-4.9); ALBUMIN/GLOBULIN RATIO 1.35; ALKALINE PHOSPHATASE 66 IU/L (42-121); ANION GAP 13 (8-16); ASPARTATE AMINO TRANSFERASE 28 IU/L (15-46); BILIRUBIN,INDIRECT 0.8 mg/dl (0-1.1); BILIRUBIN,TOTAL 0.8 mg/dl (0.2-1.3); BLOOD UREA NITROGEN 14 mg/dl (7-20); CALCIUM 8.9 mg/dl (8.4-10.2); CARBON DIOXIDE 30 mmol/L (21-31); CHLORIDE 106 mmol/L (97-110); CREATININE 0.71 mg/dl (0.44-1.00); GLUCOSE 122 mg/dl (70-220); POTASSIUM 3.2 mmol/L (3.5-5.1); SODIUM 146 mmol/L (135-144); TOTAL PROTEIN 7.3 g/dl (6.1-8.1)
[2017-03-02 17:01] LABS: TROPONIN-I < 0.012 ng/ml (0.00-0.12)
--- NOTE | 2017-03-02 17:28 | RADRPT ---
PROCEDURE: US upper extremity Venous. CLINICAL INDICATION: Upper extremity swelling TECHNIQUE: Multiple sonographic images of the bilateral upper extremity venous system was obtained utilizing sands scale, color-flow, compressive sonography and doppler imaging with augmentation. COMPARISON: None FINDINGS: There is normal compressibility and flow demonstrated within the bilateral internal jugular vein, fitzgerald bclavian vein, axillary vein and brachial vein. Normal compressibility of the basilic and cephalic v eins. IMPRESSION: No sonographic evidence for bilateral upper extremity venous thrombosis. RPTAT:AAJJ Physician Rebecca Date Time Electronically viewed and signed by Physician Rebecca on 03/02/2017 17:28 /
[2017-03-02] MEDS ORDERED: IOHEXOL 300MG/ML 150 ML BTL ONE (17:36)
[2017-03-02] MEDS ORDERED: SOD CHLORIDE 0.9% 0 ML ONE (17:36)
--- NOTE | 2017-03-02 18:45 | RADRPT ---
PROCEDURE: ULTRASOUND THYROID CLINICAL INDICATION: 56 years of age, female . Palpable thyroid mass TECHNIQUE: Multiple sonographic images of the thyroid were obtained. Transverse and sagittal imagi ng of the gland and terri-thyroidal tissues was performed with a high frequency linear array transduc er. Color interrogation was performed as well. The images were reviewed on a PACS workstation. COMPARISON: No prior studies are available for comparison. FINDINGS: THYROID SIZE: Right lobe: 3.9 x 1.3 x 1.7 cm Left lobe: 4.6 x 1.9 x 2.1 cm Isthmus: 0.29 cm THYROID PARENCHYMA APPEARANCE: Echogenicity: Normal. Vascularity: Normal. RIGHT THYROID NODULES: None. LEFT THYROID NODULES: There is a complex solid cystic nodule in the left thyroid gland with internal debris that is descri bed below. Nodule # 1: Size: 1.4 x 2.3 x 1.2 cm Location: Mid lower pole Composition: Mixed solid cystic . 1 points. Echogenicity: Solid component is isoechoic. 1 points. Shape: Wider than tall. 0 points. Margin: Smooth well defined margin. 0 points. Echogenic foci: None. 0 Points. Total points: 2, TIRADS 2. OTHER: Adenopathy: None Soft tissues: Normal Additional comment: None. IMPRESSION: 2.3 cm mixed solid cystic nodule in the left gland is not suspicious with less than 2% risk of malig tamra. TI-RADS 2. Fine needle aspiration biopsy is not indicated at this time. Recommend clinical f ollow-up. If the nodule changes, recommend repeat evaluation. Please see reference below. ACR TIRADS 2017 REFERENCE: TI-RADS 1 (0 points): Benign, <2% malignancy risk: No FNA. TI-RADS 2 (2 points): Not suspicious, <2% malignancy risk: No FNA. TI-RADS 3 (3 points): Mildly suspicious, 5% malignancy risk: FNA if ? 2.5 cm and follow if ? 1.5 cm at 1, 3 and 5 years. TI-RADS 4 (4-6 points): Moderately suspicious, 5-20% malignancy risk: FNA if ? 1.5 cm and follow if ? 1 cm at 1, 2, 3 and 5 years. TI-RADS 5 (7 points or more): Highly suspicious, >20% malignancy risk: FNA if ? 1 cm and follow if ? 0.5 cm every year for 5 years. RPTAT: HCTS Lili Brown, Physician Date Time Electronically viewed and signed by Lili Brown, Physician on 03/02/2017 18:45 CS/
[2017-03-02] MEDS ORDERED: POTASSIUM CHLORIDE 20 MEQ POWDER FOR ORAL SOLN PO PRN (19:00)
[2017-03-02 19:16] VITALS: BP 152/79; PULSE 62; RESP 16; TEMP 98.1
--- NOTE | 2017-03-02 19:25 | ERA ---
ER Documentation Chief Complaint Date/Time DATE: 03/02/17 TIME: 19:23 Chief Complaint Patient coming from a health community health screening sent for labwork request HPI 56-year-old female with a history of hypertension and hyperlipidemia referred to the ED from the [facility] for evaluation of a internal jugular vein thrombosis which was diagnosed by ultrasound and poorly controlled hypertension. Patient otherwise asymptomatic. Denies chest pain or palpitation. No shortness of breath or cough. Mild, gradual onset, generalized headaches but none now. No visual changes, focal weakness or numbness. No neck or back pain. No abdominal pain, nausea, vomiting, diarrhea or constipation. Denies anorexia or weight loss. No fevers or chills ROS All systems reviewed and are negative except as per history of present illness. Medications Home Meds Active Scripts Aspirin* (Aspirin* EC) 81 Mg Tablet.dr, 81 MG PO DAILY for 30 Days, #30 Prov:LISA GUALLPA MD 01/20/17 Reported Medications Amlodipine Besylate* (Norvasc*) 5 Mg Tablet, 5 MG PO DAILY, TAB 01/18/17 Atorvastatin* (Atorvastatin*) 40 Mg Tablet, 40 MG PO QHS, #30 TAB 01/18/17 Losartan Potassium* (Losartan Potassium*) 50 Mg Tablet, 50 MG PO DAILY, TAB 01/18/17 Hydrochlorothiazide* (Hydrochlorothiazide*) 12.5 Mg Tablet, 12.5 MG PO DAILY, # 30 TAB 01/18/17 Allergies Allergies: Coded Allergies: erythromycin base (Verified Allergy, Mild, SWELLING OF LIPS AND TINITUS, 03/02/17) tetracycline (Verified Allergy, Mild, SWELLING OF LIPS AND TINITUS, ) PMhx/Soc Reviewed in chart. As per HPI. Medical and Surgical Hx: pt denies Surgical Hx History of Surgery: No Anesthesia Reaction: No Hx Neurological Disorder: No Hx Respiratory Disorders: No Hx Cardiac Disorders: Yes (HTN, high cholesterol) Hx Psychiatric Problems: No Hx Miscellaneous Medical Probl: No Hx Alcohol Use: No Hx Substance Use: No Hx Tobacco Use: No Smoking Status: Never smoker FmHx Mother: Asthma and CVA at the age of 54. Sister: Thalassemia. Physical Exam Vitals Vital Signs Date Time Temp Pulse Resp B/P Pulse Ox O2 Delivery O2 Flow Rate FiO2 03/02/17 19:16 98.1 62 16 152/79 99 Room Air 03/02/17 16:20 69 16 135/72 99 Room Air 03/02/17 14:19 99.0 80 20 185/85 98 Physical Exam Const: Alert, no acute distress. Head: Atraumatic Eyes: Normal Conjunctiva ENT: Normal External Ears, Nose and Mouth. Neck: Full range of motion.Nontender. No meningismus. Carotids 2 + bilaterally without bruits. Resp: Clear to auscultation bilaterally Cardio: Regular rate and rhythm, no murmurs Abd: Soft, non tender, non distended. Normal bowel sounds Skin: No petechiae or rashes Back: No midline or flank tenderness Ext: No cyanosis, or edema. Neur: Awake and alert. Cranial nerves II through XII are grossly intact. Gait is normal. Motor and sensory equal bilaterally. No focal deficit observed. Psych: Normal Mood and Affect. Patient appears anxious but not depressed. Result Diagram: 03/02/17 1545 03/02/17 1545 Results 24 hrs Laboratory Tests Test 03/02/17 15:45 03/02/17 17:00 White Blood Count 6.610^3/ul Red Blood Count 5.4010^6/ul Hemoglobin 10.9g/dl Hematocrit 35.7% Mean Corpuscular Volume 66.1fl Mean Corpuscular Hemoglobin 20.2pg Mean Corpuscular Hemoglobin Concent 30.5g/dl Red Cell Distribution Width 17.3% Platelet Count 86290^3/UL Mean Platelet Volume 11.7fl Neutrophils % 55.1% Lymphocytes % 34.2% Monocytes % 6.8% Eosinophils % 3.0% Basophils % 0.6% Nucleated Red Blood Cells % 0.0/100WBC Neutrophils # 3.610^3/ul Lymphocytes # 2.310^3/ul Monocytes # 0.510^3/ul Eosinophils # 0.210^3/ul Basophils # 0.010^3/ul Nucleated Red Blood Cells # 0.010^3/ul Prothrombin Time 12.4Sec Prothrombin Time Ratio 1.0 INR International Normalized Ratio 0.92 Activated Partial Thromboplast Time 31.6Sec Sodium Level 146mmol/L Potassium Level 3.2mmol/L Chloride Level 106mmol/L Carbon Dioxide Level 30mmol/L Anion Gap 13 Blood Urea Nitrogen 14mg/dl Creatinine 0.71mg/dl Glucose Level 122mg/dl Calcium Level 8.9mg/dl Total Bilirubin 0.8mg/dl Direct Bilirubin 0.00mg/dl Indirect Bilirubin 0.8mg/dl Aspartate Amino Transf (AST/SGOT) 28IU/L Alanine Aminotransferase (ALT/SGPT) 47IU/L Alkaline Phosphatase 66IU/L Troponin I < 0.012ng/ml Total Protein 7.3g/dl Albumin 4.2g/dl Globulin 3.10g/dl Albumin/Globulin Ratio 1.35 Thyroid Stimulating Hormone (TSH) 1.860MIU/L Free Thyroxine 1.14ng/dl Current Medications Medications (Trade) Dose Ordered Sig/Amanda Route PRN Reason Start Time Stop Time Status Last Admin Dose Admin IV Flush 10 ml 10 ml STK-MED ONCE .ROUTE 03/02/17 17:36 03/02/17 17:37 DC Sodium Chloride (NS) 100 ml @ ud STK-MED ONCE .ROUTE 03/02/17 17:36 03/02/17 17:37 DC Iohexol (Omnipaque 300mg/ ml) 150 ml STK-MED ONCE .ROUTE 03/02/17 17:36 03/02/17 17:37 DC Potassium Chloride (Potassium Chloride Pwd/Soln) 40 meq PER PROTOCOL PRN PO POTASSIUM REPLACEMENT PROTOCOL 03/02/17 19:00 03/02/17 19:38 DC 03/02/17 19:14 EKG: Time: 16:01. Sinus rhythm. Ventricular rate 70. Poor R-wave progression in V1 through V3. No acute ST segment elevation or depression. Normal [place] and QRS. No ectopy. EP interpretation: Abnormal ECG. IMAGING: PROCEDURE: US upper extremity Venous. CLINICAL INDICATION: Upper extremity swelling TECHNIQUE: Multiple sonographic images of the bilateral upper extremity venous system was obtained utilizing sands scale, color-flow, compressive sonography and doppler imaging with augmentation. COMPARISON: None FINDINGS: There is normal compressibility and flow demonstrated within the bilateral internal jugular vein, subclavian vein, axillary vein and brachial vein. Normal compressibility of the basilic and cephalic veins. IMPRESSION: No sonographic evidence for bilateral upper extremity venous thrombosis. RPTAT:AAJJ Physician Rebecca Date Time Electronically viewed and signed by Chas Vanessa Physician on 03/02/2017 17 :28 MH/ PROCEDURE: ULTRASOUND THYROID CLINICAL INDICATION: 56 years of age, female . Palpable thyroid mass TECHNIQUE: Multiple sonographic images of the thyroid were obtained. Transverse and sagittal imaging of the gland and terri-thyroidal tissues was performed with a high frequency linear array transducer. Color interrogation was performed as well. The images were reviewed on a PACS workstation. COMPARISON: No prior studies are available for comparison. FINDINGS: THYROID SIZE: Right lobe: 3.9 x 1.3 x 1.7 cm Left lobe: 4.6 x 1.9 x 2.1 cm Isthmus: 0.29 cm THYROID PARENCHYMA APPEARANCE: Echogenicity: Normal. Vascularity: Normal. RIGHT THYROID NODULES: None. LEFT THYROID NODULES: There is a complex solid cystic nodule in the left thyroid gland with internal debris that is described below. Nodule # 1: Size: 1.4 x 2.3 x 1.2 cm Location: Mid lower pole Composition: Mixed solid cystic . 1 points. Echogenicity: Solid component is isoechoic. 1 points. Shape: Wider than tall. 0 points. Margin: Smooth well defined margin. 0 points. Echogenic foci: None. 0 Points. Total points: 2, TIRADS 2. OTHER: Adenopathy: None Soft tissues: Normal Additional comment: None. IMPRESSION: 2.3 cm mixed solid cystic nodule in the left gland is not suspicious with less than 2% risk of malignancy. TI-RADS 2. Fine needle aspiration biopsy is not indicated at this time. Recommend clinical follow-up. If the nodule changes, recommend repeat evaluation. Please see reference below. ACR TIRADS 2017 REFERENCE: TI-RADS 1 (0 points): Benign, <2% malignancy risk: No FNA. TI-RADS 2 (2 points): Not suspicious, <2% malignancy risk: No FNA. TI-RADS 3 (3 points): Mildly suspicious, 5% malignancy risk: FNA if ? 2.5 cm and follow if ? 1.5 cm at 1, 3 and 5 years. TI-RADS 4 (4-6 points): Moderately suspicious, 5-20% malignancy risk: FNA if ? 1.5 cm and follow if ? 1 cm at 1, 2, 3 and 5 years. TI-RADS 5 (7 points or more): Highly suspicious, >20% malignancy risk: FNA if ? 1 cm and follow if ? 0.5 cm every year for 5 years. RPTAT: HCTS Physician Tawny Date Time Electronically viewed and signed by Lili Brown Physician on 03/02/2017 18: 45 CS/ Procedures/MDM DOCUMENTS REVIEWED: ED nurse, prior ED, prior records MEDICAL DECISION MAKIN-year-old female with a history of hypertension and hyperlipidemia referred to the ED from the [facility] for evaluation of a internal jugular vein thrombosis which was diagnosed by ultrasound and poorly controlled hypertension. Venous Dopplers revealed no evidence of thrombosis of the internal jugular veins or upper extremities. Most likely what was seen was a left thyroid nodule as described above. Blood pressure improved significantly without treatment. Nonacute onset, maximal headache consistent with patient's baseline headaches. Although considered patient has no signs of subarachnoid hemorrhage, meningitis, encephalitis or hydrocephalus hence neuroimaging and/or lumbar puncture are not indicated. Mild hypokalemia replaced orally. Stable for discharge of precautionary instructions and outpatient follow-up as counseled. Counseled patient regarding diagnostic workup, diagnosis and need for followup. Understands to return to ED if symptoms recur, worsen or any other concerns. Departure Diagnosis: Primary Impression: Thyroid nodule Additional Impression: Poorly-controlled hypertension Condition: Stable (Improved) FABIOLA WASHINGTON MD Mar 02, 2017 19:25
== END 2017-03-02 19:38 | disposition home or self-care (01) ==
LOC: E/R 14:16
DX: E04.1 Nontoxic single thyroid nodule (principal); R07.9 Chest pain, unspecified; Z79.82 Long term (current) use of aspirin
CPT/HCPCS: 36415; 76536; 80053; 84439; 84443; 84484; 85025; 85610; 85730; 93005; 93970; Q9967

== ENCOUNTER 2017-05-02 06:27 | Observation (INO) | END 2017-05-02 10:16 | disposition home or self-care (01) ==

== ENCOUNTER → 2017-08-28 | Outpatient (CLI) | END | disposition home or self-care (01) ==

== ENCOUNTER → 2017-11-11 | Outpatient (CLI) | END | disposition home or self-care (01) ==

== ENCOUNTER 2017-11-14 19:14 | Emergency (ER) | END 2017-11-15 00:39 | disposition home or self-care (01) ==

== ENCOUNTER → 2018-02-20 | Outpatient (CLI) | END | disposition home or self-care (01) ==

== ENCOUNTER 2018-09-02 09:07 | Emergency (ER) | payer BC ==
[~2018-09-02] VITALS: Ht 147.3 cm; Wt 65.5 kg
[~2018-09-02 09:07] MED LIST changes: -ASPI-664 PO; +ASPI-817 PO; +ATOR20TA38 PO; -ATOR40TA68 PO; +LOSA50TA14 PO; -LOSA50TA6 PO; +ONDA4TAB14 PO
[2018-09-02 09:09] VITALS: BP 158/79; PULSE 98; RESP 20; Ht 147.3 cm; Wt 65.5 kg
[2018-09-02] MEDS ORDERED: METHYLPREDNISOLONE 125 MG INJ IV STA (10:27)
[2018-09-02] MEDS ORDERED: IPRATROPIUM (NEB) 0.5 MG/2.5 ML AMP NEB STA (10:27)
[2018-09-02] MEDS ORDERED: ALBUTEROL 0.083% (NEB) 2.5 MG/3 ML AMP NEB STA (10:27)
--- NOTE | 2018-09-02 10:38 | ERD ---
ER Documentation Chief Complaint Chief Complaint SOB x this AM HX asthma HPI 57-year-old female past medical history of mild well-controlled asthma, hypertension who presents with 1 week complaint of worsening shortness of breath and wheezing. Is also had a dry cough which she states is typical when she has her asthma flares. States been using her inhaler without much improvement in her symptoms. Has not had a so-called asthma attack in about 6-7 years she states. Does not know her typical triggers but she does work with pediatric patients and states that she felt symptoms after cleaning her home. She otherwise denies productive cough, fevers, chills, nausea vomiting diarrhea, abdominal pain, urinary symptoms. Denies any history of asthma related hospitalizations or intubations. At time of examination patient is hemodynamically stable speaking in full sentences in no acute distress. ROS All systems reviewed and are negative except as per history of present illness. Medications Home Meds Active Scripts Prednisone* (Prednisone*) 20 Mg Tab, 40 MG PO DAILY for 4 Days, TAB Prov:SHAWN TODD PA-C 09/02/18 Ondansetron (Ondansetron Odt) 4 Mg Tab.rapdis, 4 MG PO Q6H PRN for NAUSEA AND/OR VOMITING, #10 TAB Prov:HOLLI GAUTAM MD 11/14/17 Reported Medications Aspirin* (Aspirin* EC) 81 Mg Tablet.dr, 81 MG PO DAILY, TAB 11/14/17 Atorvastatin Calcium* (Atorvastatin Calcium*) 20 Mg Tablet, 20 MG PO QHS, #30 TAB 11/14/17 Hydrochlorothiazide* (Hydrochlorothiazide*) 12.5 Mg Tablet, 12.5 MG PO DAILY, #30 TAB 11/14/17 Losartan Potassium* (Losartan Potassium*) 50 Mg Tablet, 50 MG PO DAILY, TAB 11/14/17 Amlodipine Besylate* (Norvasc*) 5 Mg Tablet, 5 MG PO BID, TAB 11/14/17 Allergies Allergies: Coded Allergies: erythromycin base (Verified Allergy, Mild, SWELLING OF LIPS AND TINITUS, 11/14/17) tetracycline (Verified Allergy, Mild, SWELLING OF LIPS AND TINITUS, 11/14/17) PMhx/Soc History of Surgery: No Anesthesia Reaction: No Hx Neurological Disorder: No Hx Respiratory Disorders: Yes (Asthma) Hx Cardiac Disorders: Yes (HTN, high cholesterol) Hx Psychiatric Problems: No Hx Miscellaneous Medical Probl: No Hx Alcohol Use: No Hx Substance Use: No Hx Tobacco Use: No FmHx Family History: No diabetes, No coronary disease, No other Physical Exam Vitals Vital Signs Date Temp Pulse Resp B/P (MAP) Pulse Ox O2 O2 Flow FiO2 Time Delivery Rate 09/02/18 98 20 98 21 10:49 09/02/18 97.5 98 20 158/79 96 09:09 (105) Physical Exam I have reviewed the triage vital signs. Const: Well nourished, well developed, appears stated age Eyes: PERRL, no conjunctival injection HENT: NCAT, Neck supple without meningismus CV: RRR, Warm, well-perfused extremities RESP: CTAB, Unlabored respiratory effort, b/l bryant with moist crackles, R>L, no gross exp wheezing, GI: soft, non-tender, non-distended, no masses MSK: No gross deformities appreciated Skin: Warm, dry. No rashes Neuro: grossly non focal Psych: Appropriate mood and affect. Results 24 hrs Current Medications Medications Dose Sig/Amanda Start Time Status Last (Trade) Ordered Route PRN Stop Time Admin Dose Reason Admin Albuterol 5 mg ONCE STAT 09/02/18 DC 09/02/18 (Proventil NEB 10:27 10:47 0.083% (Neb)) 09/02/18 10:30 Ipratropium 1.5 mg ONCE STAT 09/02/18 DC 09/02/18 Vinton NEB 10:27 10:47 (Atrovent 09/02/18 10:30 0.02% (Neb)) 125 mg ONCE STAT 09/02/18 DC Methylprednis IV 10:27 olone Sodium 09/02/18 10:42 Succinate (Solu-Medrol) 10 mg ONCE ONCE 09/02/18 DC 09/02/18 Dexamethasone IM 11:00 10:54 (Decadron) 09/02/18 11:01 Procedures/MDM 57-year-old female with history of mild well-controlled asthma presents with s hortness of breath reported wheezing ML 2/2 asthma exacerbation. Mild exacerbation: No AMS, silent respirations, belly-breathing, or other sign of impending ventilatory failure. Patient diagnosed with asthma years prior. Never intubated or admitted to the hospital for asthma exacerbation. Unlikely PNA, CHF, COPD (Nonsmoker), FBAO, GERD. Workup Defer labs and imaging given clinically in exacerbation of known asthma with similar exacerbation presentations per patient. Therapies: Solu-Medrol Albuterol 2.5-5mg q20min x3 OR 15mg/hr Ipratropium 0.5mg x1 Reassessment: Patient improved with albuterol and ipratropium, steroids in less than 3 hours. Disposition: Discharge home with return precautions. Aside from this acute exacerbation patient has been well controlled on baseline home regimen. Rx short steroid course, no plan to increase home asthma regimen. Advised to follow up with primary care physician within next 24-48 hours. Patient's respir Departure Diagnosis: Primary Impression: Asthma attack Condition: Stable SHAWN TODD PA-C Sep 02, 2018 10:38
[2018-09-02] MEDS ORDERED: DEXAMETHASONE 10 MG/ML 1 ML INJ IM ONE (11:00)
[2018-09-02] MEDS ORDERED: PRED20TA PO (11:40)
== END 2018-09-02 11:55 | disposition home or self-care (01) ==
LOC: FTE 09:07
DX: J45.901 Unspecified asthma with (acute) exacerbation (principal); I10 Essential (primary) hypertension; Z79.82 Long term (current) use of aspirin
CPT/HCPCS: 94644; 96372; 99284; J1100

== ENCOUNTER → 2018-09-11 | Outpatient (CLI) | payer BC ==
[~2018-09-11] MED LIST changes: +PRED20TA PO
== END | disposition home or self-care (01) ==
LOC: LAB 12:13
PROVIDERS: ATTEND Internal Medicine
DX: R07.89 Other chest pain (principal); R73.03 Prediabetes; E78.5 Hyperlipidemia, unspecified
CPT/HCPCS: 80053; 80061; 83036; 85025; 86140

== ENCOUNTER 2018-11-15 11:08 | Emergency (ER) | payer BC ==
[~2018-11-15] VITALS: Ht 147.3 cm; Wt 66.9 kg
[2018-11-15 11:13] VITALS: Ht 147.3 cm; Wt 66.9 kg
[2018-11-15] MEDS ORDERED: IPRATROPIUM (NEB) 0.5 MG/2.5 ML AMP NEB STA (13:03)
[2018-11-15] MEDS ORDERED: ALBUTEROL 0.083% (NEB) 2.5 MG/3 ML AMP NEB STA (13:03)
[2018-11-15] MEDS ORDERED: predniSONE 20 MG TAB PO STA (13:03)
[2018-11-15] MEDS ORDERED: ATOR20TA38 PO (13:53)
[2018-11-15] MEDS ORDERED: HYDR12.58 PO (13:53)
[2018-11-15] MEDS ORDERED: AMLO5TAB4 PO (13:53)
[2018-11-15] MEDS ORDERED: LOSA50TA14 PO (13:53)
[2018-11-15] MEDS ORDERED: ALBU18HF INHALATION (13:54)
[2018-11-15] MEDS ORDERED: LEVO750T25 PO (13:55)
[2018-11-15] MEDS ORDERED: PRED20TA PO (13:55)
--- NOTE | 2018-11-15 13:58 | ERD ---
ER Documentation Chief Complaint Chief Complaint fever with SOB x 2 days HPI 58-year-old female presents the emergency department complaining of cough, fever, shortness of breath. Patient states that over the last 2 days, she is had the above symptoms. Patient reports no hemoptysis. She reports no sputum production. She reports that despite these her outpatient inhalers, she continues to feel short of breath and wheezy. She reports fevers and chills as well as myalgias concurrent with this. ROS All systems reviewed and are negative except as per history of present illness. Medications Home Meds Active Scripts Prednisone* (Prednisone*) 20 Mg Tab, 60 MG PO DAILY for 5 Days, TAB Prov:CORKY HOOVER 11/15/18 Levofloxacin* (Levaquin*) 750 Mg Tablet, 750 MG PO DAILY for 5 Days, TAB Prov:CORKY HOOVER 11/15/18 Reported Medications Albuterol Sulfate* (Ventolin HFA*) 18 Gm Hfa.aer.ad, 2 PUFF INHALATION Q4H, #1 INHALER 11/15/18 Atorvastatin Calcium* (Atorvastatin Calcium*) 20 Mg Tablet, 20 MG PO QHS, #30 TAB 11/15/18 Hydrochlorothiazide* (Hydrochlorothiazide*) 12.5 Mg Tablet, 12.5 MG PO DAILY, #30 TAB 11/15/18 Amlodipine Besylate* (Norvasc*) 5 Mg Tablet, 5 MG PO BID, TAB 11/15/18 Losartan Potassium* (Losartan Potassium*) 50 Mg Tablet, 50 MG PO DAILY, TAB 11/15/18 Discontinued Reported Medications Aspirin* (Aspirin* EC) 81 Mg Tablet.dr, 81 MG PO DAILY, TAB 11/14/17 Atorvastatin Calcium* (Atorvastatin Calcium*) 20 Mg Tablet, 20 MG PO QHS, #30 TAB 11/14/17 Hydrochlorothiazide* (Hydrochlorothiazide*) 12.5 Mg Tablet, 12.5 MG PO DAILY, #30 TAB 11/14/17 Losartan Potassium* (Losartan Potassium*) 50 Mg Tablet, 50 MG PO DAILY, TAB 11/14/17 Amlodipine Besylate* (Norvasc*) 5 Mg Tablet, 5 MG PO BID, TAB 11/14/17 Discontinued Scripts Prednisone* (Prednisone*) 20 Mg Tab, 40 MG PO DAILY for 4 Days, TAB Prov:SHAWN TODD PA-C 09/02/18 Ondansetron (Ondansetron Odt) 4 Mg Tab.rapdis, 4 MG PO Q6H PRN for NAUSEA AND/OR VOMITING, #10 TAB Prov:HOLLI GAUTAM MD 11/14/17 Allergies Allergies: Coded Allergies: erythromycin base (Verified Allergy, Mild, SWELLING OF LIPS AND TINITUS, 11/15/18) tetracycline (Verified Allergy, Mild, SWELLING OF LIPS AND TINITUS, 11/15/18) PMhx/Soc History of Surgery: No Anesthesia Reaction: No Hx Neurological Disorder: No Hx Respiratory Disorders: Yes (Asthma) Hx Cardiac Disorders: Yes (HTN, high cholesterol) Hx Psychiatric Problems: No Hx Miscellaneous Medical Probl: No Hx Alcohol Use: No Hx Substance Use: No Hx Tobacco Use: No Smoking Status: Never smoker FmHx Noncontributory for chief complaint Physical Exam Vitals Vital Signs Date Temp Pulse Resp B/P (MAP) Pulse Ox O2 O2 Flow FiO2 Time Delivery Rate 11/15/18 122 122/75 100 Room Air 13:38 (91) 11/15/18 96 18 97 13:14 11/15/18 100.5 111 18 166/74 95 11:13 (104) Physical Exam GENERAL: The patient is well developed and appropriate for usual state of health in no apparent distress HEENT: Pupils equal, round, and reactive to light. EOMI. There is no scleral icterus. NECK: C-spine is soft and supple, there is no meningismus. There is no cervical lymphadenopathy. LUNGS: Wheezing bilaterally with no tachypnea or retractions. No crackles or consolidative changes. HEART: Regular rate and rhythm, no murmurs, clicks, rubs or gallops. ABDOMEN: Soft, non-tender, non-distended. There are bowel sounds in all four quadrants. No rebound or guarding. EXTREMITIES: There is no peripheral cyanosis or edema. No focal swelling or erythema. NEURO: The patient moves all four extremities with 5/5 strength. Cranial nerves II - XII are intact. Normal gait. Alert and oriented SKIN: There is no apparent rash or petechiae. HEME/LYMPHATIC: There is no evidence of excessive bruising or lymphedema. PSYCHIATRIC: The patient does not appear anxious or depressed. Results 24 hrs Current Medications Medications Dose Sig/Amanda Start Time Status Last (Trade) Ordered Route PRN Stop Time Admin Dose Reason Admin Albuterol 5 mg ONCE STAT 11/15/18 DC 11/15/18 (Proventil NEB 13:03 13:14 0.083% (Neb)) 11/15/18 13:05 Ipratropium 0.5 mg ONCE STAT 11/15/18 DC 11/15/18 [place] NEB 13:03 13:14 (Atrovent 11/15/18 13:05 0.02% (Neb)) Prednisone 60 mg ONCE STAT 11/15/18 DC 11/15/18 (Prednisone) PO 13:03 13:37 11/15/18 13:05 Procedures/MDM Patient was taken to a room, seen and examined. Patient received breathing treatments. Radiology: 1 view CXR reviewed by myself: No bony or soft tissue abnormalities Cardiac silhouette normal Mediastinum normal Lung bryant normal without infiltrate, mass, or CHF Pleura normal Impression: Normal CXR Upon reevaluation after the breathing treatment, patient's lungs had occasional wheezing but she seemed to be much better and felt much better. She had no evidence of respiratory distress or hypoxemia. Medical decision makin-year-old female resents the emergency department with what appears to be an asthmatic type bronchitis. Patient has no evidence of pneumonia, hypoxemia or respiratory distress. Patient appears to be clinically nontoxic and appropriate for outpatient care at this time. Departure Diagnosis: Primary Impression: Bronchitis Condition: Stable Patient Instructions: Bronchitis With Wheezing (Adult) Additional Instructions: Please see your doctor if not improved in the next 2 to 3 days. CORKY HOOVER Nov 15, 2018 13:58
[2018-11-15] MEDS ORDERED: ALBUTEROL 0.5% (NEB) 2.5 MG/0.5 ML AMP INH STA (14:30)
[2018-11-15 16:05] VITALS: BP 121/63; PULSE 108; RESP 16
== END 2018-11-15 16:05 | disposition home or self-care (01) ==
LOC: FTE 11:08 → E/R 16:05
DX: J40 Bronchitis, not specified as acute or chronic (principal); I10 Essential (primary) hypertension
CPT/HCPCS: 71045; 94644; 94664; 99284; J7512

== ENCOUNTER 2018-11-19 16:22 | Inpatient (IN) | payer BC ==
[~2018-11-19] VITALS: Ht 147.3 cm; Wt 66.9 kg
[~2018-11-19 16:22] MED LIST changes: +ALBU18HF INHALATION; -ASPI-817 PO; +LEVO750T25 PO; -ONDA4TAB14 PO
[2018-11-19 17:00] VITALS: Ht 147.3 cm; Wt 66.9 kg
[2018-11-19 17:26] VITALS: BP 168/77; PULSE 81; RESP 18
[2018-11-19] MEDS ORDERED: ALBUTEROL 0.083% (NEB) 2.5 MG/3 ML AMP HHN PRN (18:30)
[2018-11-19] MEDS ORDERED: ZOLPIDEM 5 MG TAB PO PRN (19:30)
[2018-11-19] MEDS ORDERED: NACL 0.9% 3 ML SYG IV SCH (19:30)
[2018-11-19] MEDS ORDERED: ONDANSETRON 4 MG INJ IV PRN (19:30)
[2018-11-19] MEDS ORDERED: DOCUSATE SODIUM 100 MG CAP PO PRN (19:30)
[2018-11-19] MEDS: ENOXAPARIN 30 MG/0.3 ML SYG SC SCH (19:30)
[2018-11-19] MEDS ORDERED: ACETAMINOPHEN 325 MG TAB PO PRN (19:30)
[2018-11-19] MEDS: METHYLPREDNISOLONE 40 MG INJ IV SCH (19:30)
[2018-11-19] MEDS: ALBUTEROL 0.083% (NEB) 2.5 MG/3 ML AMP HHN SCH (19:32)
[2018-11-19 20:00] VITALS: BP 175/81; PULSE 81; RESP 18
[2018-11-19] MEDS: CEFTRIAXONE 1 GM/50 ML (PMX) 50 ML IVPB SCH (20:21)
[2018-11-19] MEDS: ATORVASTATIN 20 MG TAB PO SCH (20:26)
[2018-11-19] MEDS: AMLODIPINE 5 MG TAB PO SCH (20:28)
--- NOTE | 2018-11-19 22:04 | HP ---
DATE OF ADMISSION: 11/19/2018 CHIEF COMPLAINT AND HISTORY OF PRESENT ILLNESS: The patient is a 58-year-old lady well known to me f rom previous followup, with known history of hypertension, prediabetes, presenting with a 1-week hist ory of progressive shortness of breath. The patient was seen in the emergency room 5 days back and w as found to have severe asthmatic bronchitis, given inhaled bronchodilator therapy along with Levaqui n 750 mg p.o. daily along with prednisone 60 mg daily, which she continues to take and she has been h aving increasing exertional dyspnea, also has been having cough with mucoid expectoration. Denies an y fever or chills. The patient was evaluated in my office and was admitted to the hospital, has fail ed outpatient treatment for asthmatic bronchitis. ALLERGIES: 1. ERYTHROMYCIN 2. TETRACYCLINE. REVIEW OF SYSTEMS: HEAD: No history of headaches, focal weakness, numbness. EYES: No blurry vision or glaucoma. ENT: Noncontributory. NECK: No history of thyroid disease. CHEST: History of bronchial asthma. The patient has never been intubated. HEART: History of atypical chest pain, was admitted 2 years back with atypical chest pain and had a Lexiscan stress test was negative at this time. The patient has had chest pain with cough and also p alpitations recently shortly after using the albuterol. GASTROINTESTINAL: No constipation, diarrhea, change in bowel habits. GENITOURINARY: No dysuria, hematuria, kidney stones. FAMILY HISTORY: Mother had asthma, had stroke at age 54. The patient has 4 brothers and 3 sisters, all healthy. One sister has thalassemia. PHYSICAL EXAMINATION: GENERAL: The patient is an average-built female who is very pleasant, in mild respiratory distress. VITAL SIGNS: Respiratory rate 22 per minute, temperature 98.0, blood pressure 168/77, O2 saturation 92% on room air. HEENT: Head normocephalic. No pallor, cyanosis, or icterus. Tongue is moist. NECK: Supple. No thyromegaly, bruits or lymphadenopathy. CHEST: Bilateral inspiratory and expiratory wheezes, no rales. HEART: S1, S2 heard. No definite gallops. ABDOMEN: Soft, obese, nontender, no hepatosplenomegaly. EXTREMITIES: No edema. Pedal pulsations 2+ bilaterally. Homans sign is negative. NEUROLOGIC: No localizing or lateralizing signs. IMPRESSION: 1. Acute asthmatic bronchitis, failed outpatient treatment. 2. Hypertension. 3. Prediabetes. 4. Atypical chest pain. The patient has had a prior cardiac workup, which was negative. PLAN: The patient will be admitted to the medical floor. Obtain EKG, chest x-ray. Continue amlodip ine, atorvastatin, losartan. Start the patient on intravenous Solu-Medrol. We will hold on the anti biotics for now. Repeat chest x-ray. Pulmonary consultation if necessary. Dictated By: LISA GUALLPA MD SR/NTS Conf#: [id number] DID#: [id number] CC: LISA GUALLPA MD;*EndCC*
[2018-11-20] MEDS: ALBUTEROL 0.083% (NEB) 2.5 MG/3 ML AMP HHN SCH ×6 (00:10→20:22)
[2018-11-20] MEDS: METHYLPREDNISOLONE 40 MG INJ IV SCH ×4 (00:29→17:15)
[2018-11-20 02:00] VITALS: BP 133/74; PULSE 82; RESP 18
[2018-11-20] MEDS ORDERED: PANTOPRAZOLE (EC) 40 MG TAB PO ONE (04:11)
[2018-11-20] MEDS: PANTOPRAZOLE (EC) 40 MG TAB PO SCH (05:53)
[2018-11-20 08:11] VITALS: BP 175/77; PULSE 82; RESP 18
[2018-11-20] MEDS: AMLODIPINE 5 MG TAB PO SCH ×2 (08:28→20:07)
[2018-11-20] MEDS: LOSARTAN 50 MG TAB PO SCH (08:28)
[2018-11-20] MEDS: ENOXAPARIN 30 MG/0.3 ML SYG SC SCH (08:28)
[2018-11-20 14:30] VITALS: BP 128/61; PULSE 94; RESP 18
--- NOTE | 2018-11-20 15:00 | RADRPT ---
Vent Rate: 69 bpm RR Interval: 872 msec NH Interval: 140 msec QRS Duration: 90 msec QT Interval: 415 msec QTC Interval: 444 msec P-R-T Boon: 19 - 15 - 16 degrees Sinus rhythm...normal P axis, V-rate 50- 99 Electronically Signed By: Bryant Silva
[2018-11-20] MEDS ORDERED: AZITHROMYCIN 250 MG TAB PO SCH (19:30)
--- NOTE | 2018-11-20 19:31 | PN ---
DATE: 11/20/2018 SUBJECTIVE: The patient continues to have moderate shortness of breath. Denies any decreased chest pain. OBJECTIVE: VITAL SIGNS: Temperature 98.0, blood pressure 120/61, O2 saturation 94% on room air. CHEST: Revealed tight air entry, bilateral wheezes. HEART: S1, S2 with no definite gallops. EXTREMITIES: No edema. LABORATORY DATA: Troponin is less than 0.012. Potassium is 4.2. DIAGNOSTIC DATA: EKG shows normal sinus rhythm with no acute changes. IMPRESSION: 1. Acute asthmatic bronchitis, failed outpatient treatment. 2. Hypertension. 3. Prediabetes. 4. Atypical chest pain. No evidence of any acute coronary event. PLAN: We will continue IV Solu-Medrol. Add Mucinex. Add also Zithromax 500 mg p.o. daily for 3 day s. Dictated By: LISA GUALLPA MD SR/NTS Conf#: [id number] DID#: [id number]
[2018-11-20 20:00] VITALS: BP 165/72; PULSE 91; RESP 18
[2018-11-20] MEDS: CEFTRIAXONE 1 GM/50 ML (PMX) 50 ML IVPB SCH (20:06)
[2018-11-20] MEDS: ATORVASTATIN 20 MG TAB PO SCH (20:06)
[2018-11-20] MEDS: GUAIFENESIN LA 600 MG TABSR PO SCH (20:06)
[2018-11-21] MEDS: ALBUTEROL 0.083% (NEB) 2.5 MG/3 ML AMP HHN SCH ×7 (00:35→20:17)
[2018-11-21] MEDS: METHYLPREDNISOLONE 40 MG INJ IV SCH ×5 (00:44→23:35)
[2018-11-21 02:00] VITALS: BP 122/58; PULSE 91; RESP 17
[2018-11-21] MEDS: PANTOPRAZOLE (EC) 40 MG TAB PO SCH (05:22)
[2018-11-21 07:46] VITALS: BP 148/70; PULSE 87; RESP 18
[2018-11-21] MEDS: AZITHROMYCIN 250 MG TAB PO SCH (08:19)
[2018-11-21] MEDS: GUAIFENESIN LA 600 MG TABSR PO SCH ×2 (08:22→20:40)
--- NOTE | 2018-11-21 08:49 | PN ---
DATE: 11/21/2018 SUBJECTIVE: The patient continues to have moderate shortness of breath. PHYSICAL EXAMINATION VITAL SIGNS: Temperature 98.5, blood pressure 148/70, O2 saturation 98% on room air. HEENT: JVD is not increased. CHEST: Tight air entry with bilateral wheezes. HEART: S1, S2 with no definite gallops. EXTREMITIES: No edema. IMPRESSION: 1. Acute asthmatic bronchitis, failed outpatient treatment. 2. Hypertension. 3. Prediabetes. 4. Atypical chest pain. No evidence of any acute coronary event. PLAN: 1. We will add Singulair 10 mg p.o. daily. 2. Increase activity and observe. Dictated By: LISA GUALLPA MD, SR/CHELSEA Conf#: [id number] DID#: [id number]
[2018-11-21] MEDS: ENOXAPARIN 30 MG/0.3 ML SYG SC SCH (09:00)
[2018-11-21] MEDS: MONTELUKAST 10 MG TAB PO SCH (09:22)
[2018-11-21] MEDS: LOSARTAN 50 MG TAB PO SCH (09:23)
[2018-11-21] MEDS: AMLODIPINE 5 MG TAB PO SCH ×2 (09:24→20:42)
[2018-11-21 13:47] VITALS: BP 137/64; PULSE 104; RESP 18
[2018-11-21 20:00] VITALS: BP 134/66; PULSE 85; RESP 18
[2018-11-21] MEDS: CEFTRIAXONE 1 GM/50 ML (PMX) 50 ML IVPB SCH (20:39)
[2018-11-21] MEDS: ATORVASTATIN 20 MG TAB PO SCH (20:40)
[2018-11-22] MEDS: ALBUTEROL 0.083% (NEB) 2.5 MG/3 ML AMP HHN SCH ×6 (01:03→21:16)
[2018-11-22 02:00] VITALS: BP 139/63; PULSE 96; RESP 18
[2018-11-22] MEDS: PANTOPRAZOLE (EC) 40 MG TAB PO SCH (05:51)
[2018-11-22] MEDS: METHYLPREDNISOLONE 40 MG INJ IV SCH ×3 (05:51→21:34)
[2018-11-22 07:47] VITALS: BP 123/56; PULSE 87; RESP 16
[2018-11-22] MEDS: GUAIFENESIN LA 600 MG TABSR PO SCH ×2 (08:59→21:35)
[2018-11-22] MEDS: AZITHROMYCIN 250 MG TAB PO SCH (08:59)
[2018-11-22] MEDS: LOSARTAN 50 MG TAB PO SCH (08:59)
[2018-11-22] MEDS: MONTELUKAST 10 MG TAB PO SCH (08:59)
[2018-11-22] MEDS: AMLODIPINE 5 MG TAB PO SCH ×2 (09:00→21:35)
[2018-11-22] MEDS: ENOXAPARIN 30 MG/0.3 ML SYG SC SCH (09:00)
[2018-11-22 14:48] VITALS: BP 123/61; PULSE 94; RESP 16
--- NOTE | 2018-11-22 16:37 | PN ---
DATE: 11/22/2018 SUBJECTIVE: The patient continues to have moderate shortness of breath, less congested cough today. PHYSICAL EXAMINATION: VITAL SIGNS: Temperature 98.2, blood pressure 120/56, O2 sats 94% on room air. CHEST: Bilateral inspiratory and expiratory wheezes, no rales. HEART: S1, S2 with no definite gallops. EXTREMITIES: No edema. IMPRESSION: 1. Acute asthmatic bronchitis, failed outpatient treatment with slow improvement. 2. Hypertension. 3. Prediabetes. PLAN: Will decrease the dose of Solu-Medrol, increase activity and observe. Dictated By: LISA GUALLPA MD SR/NTS Conf#: [id number] DID#: [id number]
[2018-11-22 19:53] VITALS: BP 142/67; PULSE 78; RESP 18
[2018-11-22] MEDS: CEFTRIAXONE 1 GM/50 ML (PMX) 50 ML IVPB SCH (21:33)
[2018-11-22] MEDS: ATORVASTATIN 20 MG TAB PO SCH (21:35)
[2018-11-23] MEDS: ALBUTEROL 0.083% (NEB) 2.5 MG/3 ML AMP HHN SCH ×5 (01:22→16:27)
[2018-11-23 02:14] VITALS: BP 121/58; PULSE 87; RESP 17
[2018-11-23] MEDS: PANTOPRAZOLE (EC) 40 MG TAB PO SCH (05:55)
[2018-11-23] MEDS: METHYLPREDNISOLONE 40 MG INJ IV SCH ×3 (05:55→21:24)
[2018-11-23 08:17] VITALS: BP 126/72; PULSE 80; RESP 18
[2018-11-23] MEDS: ENOXAPARIN 30 MG/0.3 ML SYG SC SCH (09:00)
[2018-11-23] MEDS: AZITHROMYCIN 250 MG TAB PO SCH (09:01)
[2018-11-23] MEDS: AMLODIPINE 5 MG TAB PO SCH ×2 (09:01→21:25)
[2018-11-23] MEDS: GUAIFENESIN LA 600 MG TABSR PO SCH ×2 (09:01→21:24)
[2018-11-23] MEDS: MONTELUKAST 10 MG TAB PO SCH (09:01)
[2018-11-23] MEDS: LOSARTAN 50 MG TAB PO SCH (09:02)
[2018-11-23 14:28] VITALS: BP 102/54; PULSE 81; RESP 18
--- NOTE | 2018-11-23 18:32 | PN ---
DATE: 11/23/2018 SUBJECTIVE: The patient continues to have moderate shortness of breath on minimal exertion. Complai ns of palpitations on albuterol. OBJECTIVE: VITAL SIGNS: Temperature 98.3, blood pressure 102/54, O2 saturation 99% on room air. CHEST: Bilateral inspiratory and expiratory wheezes. Air entry slightly improved. HEART: S1, S2 heard, no murmurs or gallops. EXTREMITIES: No edema. IMPRESSION: 1. Acute asthmatic bronchitis. No evidence of pneumonia with slow improvement. 2. Hypertension. 3. Prediabetes. PLAN: We will continue IV Solu-Medrol and antibiotics, Rocephin and Zithromax. We will change from albuterol to Xopenex and observe. The patient remains stable over the next 24 hours, consider discha rge tomorrow. Dictated By: LISA GUALLPA MD SR/NTS Conf#: [id number] DID#: [id number] CC: LISA GUALLPA MD;*EndCC*
[2018-11-23] MEDS: CEFTRIAXONE 1 GM/50 ML (PMX) 50 ML IVPB SCH (19:30)
[2018-11-23] MEDS: LEVALBUTEROL (NEB) 0.63 MG/3 ML AMP HHN SCH (19:49)
[2018-11-23 20:00] VITALS: BP 141/71; PULSE 83; RESP 18
[2018-11-23] MEDS: ATORVASTATIN 20 MG TAB PO SCH (21:24)
[2018-11-24] MEDS: LEVALBUTEROL (NEB) 0.63 MG/3 ML AMP HHN SCH ×2 (01:39→08:50)
[2018-11-24 02:00] VITALS: BP 103/56; PULSE 75; RESP 17
[2018-11-24] MEDS: METHYLPREDNISOLONE 40 MG INJ IV SCH (05:43)
[2018-11-24] MEDS: PANTOPRAZOLE (EC) 40 MG TAB PO SCH (05:43)
[2018-11-24 08:00] VITALS: BP 144/74; PULSE 80; RESP 16
[2018-11-24] MEDS: GUAIFENESIN LA 600 MG TABSR PO SCH (08:42)
[2018-11-24] MEDS: LOSARTAN 50 MG TAB PO SCH (08:43)
[2018-11-24] MEDS: AMLODIPINE 5 MG TAB PO SCH (08:43)
[2018-11-24] MEDS: MONTELUKAST 10 MG TAB PO SCH (08:43)
[2018-11-24] MEDS: ENOXAPARIN 30 MG/0.3 ML SYG SC SCH (08:44)
--- NOTE | 2018-11-24 10:56 | DS ---
DATE OF ADMISSION: 11/21/2018 DATE OF DISCHARGE: 11/24/2018 FINAL DIAGNOSES: 1. Acute severe asthmatic bronchitis, failed outpatient treatment. 2. Hypertension, essential. 3. Prediabetes. 4. Atypical chest pain, noncardiac, prior cardiac workup has been negative. HOSPITAL COURSE: The patient is a 58-year-old lady well known to me from previous followup with a kn own history of hypertension, prediabetes, presenting with 1-week history of progressive shortness of breath, had been seen in the emergency room 5 days prior, found to have severe asthmatic bronchitis, given inhaled bronchodilator therapy along with Levaquin 750 every day along with prednisone 60 mg da stefan. The patient was continued to have increasing exertional dyspnea with cough with mucoid expector ation. Seen in the office and was directly admitted. The patient was placed on course of inhaled b ronchodilator therapy. The patient began having palpitations and albuterol switched to Xopenex. She was maintained on ceftriaxone and intravenous Solu-Medrol which has been tapered. Azithromycin was added. The patient gradually improved and was discharged home on a course of Bactrim-DS 1 tablet b.i .d. for 7 days, prednisone tapering doses from 40 to 10 over the course of 12 days, Singulair 10 mg d aily. Continue bronchodilators as before. She will be followed in my office over the course of next week. She has also been advised to rest at home for 2 weeks. Dictated By: LISA GUALLPA MD, SR/CHELSEA Conf#: [id number] DID#: [id number]
== END 2018-11-24 11:20 | disposition home or self-care (01) | DRG 202 ==
LOC: INTOOBSV 16:48 → PP2 16:48 → OBSVTOIN 11-21 08:49
PROVIDERS: ADMIT Internal Medicine; ATTEND Internal Medicine
DX: J20.9 Acute bronchitis, unspecified (principal); J45.901 Unspecified asthma with (acute) exacerbation; R73.03 Prediabetes; I10 Essential (primary) hypertension; R07.89 Other chest pain
CPT/HCPCS: 71045; 80048; 80053; 84436; 84443; 84479; 84484; 85025; 93005; 94640; 94664; G0378; J0696; J1650; J2920

== ENCOUNTER 2018-11-26 10:28 | Emergency (ER) | payer BC ==
[~2018-11-26] VITALS: Ht 154.9 cm; Wt 70.0 kg
[~2018-11-26 10:28] MED LIST changes: -LEVO750T25 PO; -PRED20TA PO
[2018-11-26 10:33] VITALS: Ht 154.9 cm; Wt 70.0 kg
[2018-11-26] MEDS ORDERED: SOD CHLORIDE 0.9% 1,000 ML IV STA (11:22)
--- NOTE | 2018-11-26 13:41 | ERD ---
ER Documentation Chief Complaint Chief Complaint FEELS WEAK, ON PREDNISONE FOR ASTHMA HPI 58-year-old female presents to the emergency room complaining of generalized weakness. Patient was recently admitted and started on prednisone for asthma exacerbation. She states that today at home she felt lightheaded like she might pass out. She noted that her heart rate and blood pressure was slightly low. She denied any chest pain or shortness of breath. She states that since she started taking the prednisone she started to feel weird. Patient denies any fevers or chills, no nausea or vomiting. She denies any chest pressure or shortness of breath or pleuritic pain. Symptoms are resolved upon arrival. ROS All systems reviewed and are negative except as per history of present illness. Medications Home Meds Reported Medications Albuterol Sulfate* (Ventolin HFA*) 18 Gm Hfa.aer.ad, 2 PUFF INHALATION Q4H, #1 INHALER 11/15/18 Atorvastatin Calcium* (Atorvastatin Calcium*) 20 Mg Tablet, 20 MG PO QHS, #30 TAB 11/15/18 Hydrochlorothiazide* (Hydrochlorothiazide*) 12.5 Mg Tablet, 12.5 MG PO DAILY, #30 TAB 11/15/18 Amlodipine Besylate* (Norvasc*) 5 Mg Tablet, 5 MG PO BID, TAB 11/15/18 Losartan Potassium* (Losartan Potassium*) 50 Mg Tablet, 50 MG PO DAILY, TAB 11/15/18 Discontinued Scripts Prednisone* (Prednisone*) 20 Mg Tab, 60 MG PO DAILY for 5 Days, TAB Prov:SNEHA,CORKY 11/15/18 Levofloxacin* (Levaquin*) 750 Mg Tablet, 750 MG PO DAILY for 5 Days, TAB Prov:GAGANDEEP HOOVERSON 11/15/18 Allergies Allergies: Coded Allergies: erythromycin base (Verified Allergy, Mild, SWELLING OF LIPS AND TINITUS, 11/15/18) tetracycline (Verified Allergy, Mild, SWELLING OF LIPS AND TINITUS, 11/15/18) PMhx/Soc History of Surgery: No Anesthesia Reaction: No Hx Neurological Disorder: No Hx Respiratory Disorders: Yes (Asthma) Hx Cardiac Disorders: Yes (HTN) Hx Psychiatric Problems: No Hx Miscellaneous Medical Probl: No Hx Alcohol Use: No Hx Substance Use: No Hx Tobacco Use: No Smoking Status: Never smoker FmHx Family History: No diabetes Physical Exam Vitals Vital Signs Date Temp Pulse Resp B/P (MAP) Pulse Ox O2 O2 Flow FiO2 Time Delivery Rate 11/26/18 98.1 86 18 116/64 99 10:33 (81) Physical Exam General: Well developed, well nourished, no acute distress Head: Normocephalic, atraumatic. Eyes: Pupils equally reactive, EOM intact ENT: Moist mucous membranes Neck: Supple, no lymphadenopathy Respiratory: Lungs clear bilaterally, no distress Cardiovascular: RRR, no murmurs, rubs, or gallops Abdominal: Soft, non-tender, non-distended, no peritoneal signs : Deferred MSK: No edema, no unilateral swelling, 5/5 strength Neurologic: Alert and oriented, moving all extremities, normal speech, no focal weakness, no cerebellar signs Skin: No rash Psych: Normal mood Result Diagram: 11/26/18 1125 11/26/18 1125 Results 24 hrs Laboratory Tests Test 11/26/18 11:25 White Blood Count 23.5 10^3/ul Red Blood Count 5.97 10^6/ul Hemoglobin 12.3 g/dl Hematocrit 38.9 % Mean Corpuscular Volume 65.2 fl Mean Corpuscular Hemoglobin 20.6 pg Mean Corpuscular Hemoglobin Concent 31.6 g/dl Red Cell Distribution Width 17.3 % Platelet Count 308 10^3/UL Mean Platelet Volume 10.7 fl Immature Granulocytes % 0.900 % Neutrophils % 90.5 % Lymphocytes % 4.8 % Monocytes % 3.2 % Eosinophils % 0.4 % Basophils % 0.2 % Nucleated Red Blood Cells % 0.0 /100WBC Immature Granulocytes # 0.210 10^3/ul Neutrophils # 21.3 10^3/ul Lymphocytes # 1.1 10^3/ul Monocytes # 0.7 10^3/ul Eosinophils # 0.1 10^3/ul Basophils # 0.1 10^3/ul Nucleated Red Blood Cells # 0.0 10^3/ul Sodium Level 139 mmol/L Potassium Level 3.9 mmol/L Chloride Level 103 mmol/L Carbon Dioxide Level 28 mmol/L Anion Gap 8 Blood Urea Nitrogen 22 mg/dl Creatinine 0.61 mg/dl Est Glomerular Filtrat Rate mL/min > 60 mL/min Glucose Level 114 mg/dl Calcium Level 8.3 mg/dl Magnesium Level 2.4 mg/dl Troponin I < 0.012 ng/ml Current Medications Medications Dose Sig/Amanda Start Time Status Last (Trade) Ordered Route PRN Stop Time Admin Dose Reason Admin Sodium 1,000 ml @ Q1H STAT 11/26/18 DC 11/26/18 Chloride 1,000 mls/hr IV 11:22 11:31 11/26/18 12:21 Procedures/MDM EKG, MONITORS, & DIAGNOSTIC IMAGING: EKG: I reviewed and interpreted a 12-lead EKG. Rhythm: Normal sinus rhythm ST Changes: No contiguous ST segment elevations T waves: No contiguous T wave inversions Impression: No evidence of acute cardiac ischemia LAB INTERPRETATION: I reviewed the laboratory testing and it shows leukocytosis likely secondary to steroid use MEDICAL DECISION MAKING: patient presents with a transient episode of what appears to be possibly near syncope versus generalized weakness. The patient had bradycardic event likely secondary to vasovagal process. Patient has complete resolution. I do not believe this is consistent with infectious process, ACS or pulmonary embolism. ER COURSE: * Patient has dramatic improvement. IV fluids given. The patient's vital signs of remained stable. Patient is leukocytosis likely secondary to steroid use. No signs or symptoms focally or clinically consistent with infectious process. I believe the patient is safe for discharge with close primary care follow- up. CONSULTATION: None DISPOSITION PLAN: The patient does not have an identifiable emergent medical condition that warrants inpatient hospitalization at this time. The patient is deemed safe for discharge with outpatient follow-up. We discussed follow up with the patient's primary care doctor within 24 to 48 hours as needed. We also discussed return to the emergency room for worsening symptoms or worsening condition. Outpatient referral: None required Discharge Medications: None required Departure Diagnosis: Primary Impression: Acute weakness Additional Impression: Vasovagal near syncope Condition: Stable SYBIL VEGA MD Nov 26, 2018 13:41
[2018-11-26 13:59] VITALS: BP 122/65; PULSE 79; RESP 20
== END 2018-11-26 14:13 | disposition home or self-care (01) ==
LOC: E/R 10:28
DX: R53.1 Weakness (principal); J45.909 Unspecified asthma, uncomplicated; I10 Essential (primary) hypertension; R55 Syncope and collapse
CPT/HCPCS: 36415; 80048; 83735; 84484; 85025; 93005; 99284; J7030

== ENCOUNTER 2018-12-21 11:17 | Emergency (ER) | payer BC ==
[~2018-12-21] VITALS: Ht 154.9 cm; Wt 67.5 kg
[~2018-12-21 11:17] MED LIST changes: +ACET325T33 PO; +AMOX1TAB10 PO
[2018-12-21 11:36] VITALS: Ht 154.9 cm; Wt 67.5 kg
--- NOTE | 2018-12-21 12:50 | ERD ---
ER Documentation Chief Complaint Chief Complaint accidentally stepped on porcelain this 10 am; possible stuck on 2nd digit HPI 4-year-old female, with history of hypertension, presents to the emergency department, complaining of a puncture wound on the second toe of the right foot that occurred approximately 2 hours prior to arrival. The pain is sharp, constant, throbbing. No recent tetanus vaccine. The patient denies fever, no chills, no active bleeding, no distal weakness, numbness or tingling. ROS All systems reviewed and are negative except as per history of present illness. Medications Home Meds Active Scripts Amoxicillin/Potassium Clav (Amox-Clav 875-125 mg Tablet) 875-125 mg Tab, 1 TAB PO BID for 5 Days, #10 TAB Prov:VIKI SOSA MD 12/21/18 Acetaminophen* (Tylenol*) 325 Mg Tablet, 1 TAB PO Q6 PRN for PAIN AND OR ELEVATED TEMP, #20 TAB Prov:VIKI SOSA MD 12/21/18 Reported Medications Albuterol Sulfate* (Ventolin HFA*) 18 Gm Hfa.aer.ad, 2 PUFF INHALATION Q4H, #1 INHALER 11/15/18 Atorvastatin Calcium* (Atorvastatin Calcium*) 20 Mg Tablet, 20 MG PO QHS, #30 TAB 11/15/18 Hydrochlorothiazide* (Hydrochlorothiazide*) 12.5 Mg Tablet, 12.5 MG PO DAILY, #30 TAB 11/15/18 Amlodipine Besylate* (Norvasc*) 5 Mg Tablet, 5 MG PO BID, TAB 11/15/18 Losartan Potassium* (Losartan Potassium*) 50 Mg Tablet, 50 MG PO DAILY, TAB 11/15/18 Allergies Allergies: Coded Allergies: erythromycin base (Verified Allergy, Mild, SWELLING OF LIPS AND TINITUS, 11/15/18) tetracycline (Verified Allergy, Mild, SWELLING OF LIPS AND TINITUS, 11/15/18) PMhx/Soc History of Surgery: No Anesthesia Reaction: No Hx Neurological Disorder: No Hx Respiratory Disorders: Yes (Asthma) Hx Cardiac Disorders: Yes (HTN) Hx Psychiatric Problems: No Hx Miscellaneous Medical Probl: No Hx Alcohol Use: No Hx Substance Use: No Hx Tobacco Use: No Smoking Status: Never smoker FmHx Family History: diabetes; No coronary disease Physical Exam Vitals Vital Signs Date Temp Pulse Resp B/P (MAP) Pulse Ox O2 O2 Flow FiO2 Time Delivery Rate 12/21/18 98.6 79 20 142/70 98 14:10 (94) 12/21/18 99.0 95 20 160/71 98 11:36 (100) Physical Exam Const: No acute distress Head: Atraumatic Eyes: Normal Conjunctiva ENT: Normal External Ears, Nose and Mouth. Neck: Full range of motion. No meningismus. Resp: Clear to auscultation bilaterally Cardio: Regular rate and rhythm, no murmurs Abd: Soft, non tender, non distended. Normal bowel sounds Skin: No petechiae or rashes Back: No midline or flank tenderness Ext: No cyanosis, or edema Neur: Awake and alert Psych: Normal Mood and Affect Results 24 hrs Current Medications Medications Dose Sig/Amanda Start Time Status Last (Trade) Ordered Route PRN Stop Time Admin Dose Reason Admin Diphtheria/ 0.5 ml ONCE ONCE 12/21/18 DC 12/21/18 Tetanus/Acell IM* 13:00 12/21/18 13:19 Pertussis 13:01 (Adacel) Patient: ARMAND VERA : 1960 Age: 58 Sex: F MR #: [id number] DOS: 12/21/18 1247 Ordering MD: VIKI SOSA MD Location: [facility] Room/Bed: PROCEDURE: XR right second toe CLINICAL INDICATION: Puncture wound TECHNIQUE: An AP and 2 oblique views of the first through third toes were submitted. COMPARISON: None FINDINGS: Osseous structures: appear well mineralized and intact with no fracture or destructive process identified. Joint spaces: are well maintained, with no significant spurring, erosion or joint effusion evident. Soft tissues: appear unremarkable. No radiopaque foreign body or subcutaneous air is evident. IMPRESSION: Unremarkable right second toe. Procedures/MDM Vital signs stable, the patient was evaluated for foreign body, open fracture, nerve/vascular/tendon injury. Neurovascular exam intact. The patient is stable to be treated outpatient and will be discharged home with a Rx for Augmentin, some side effects of prescribed medications (headache, rash, nausea, vomiting, diarrhea, interactions with other medications) were reviewed. The patient was instructed to follow up with the primary care provider in the next 48h for wound check. If symptoms persist, worsen or new symptoms develop, then patient should return to the ED immediately. Instructions explained and given directly by me to the patient with acknowledgment and demonstrated understanding. Disclaimer: Inadvertent spelling and grammatical errors are likely due to EHR/dictation software use and do not reflect on the overall quality of patient care. Also, please note that the electronic time recorded on this note does not necessarily reflect the actual time of the patient encounter. Departure Diagnosis: Primary Impression: Puncture wound of toe of right foot Condition: Stable Additional Instructions: Thank you very much for allowing us to participate in your care. Your health and safety is our top priority at [facility]. The evaluation in the emergency department has been done to rule out an acute emergency. Chronic, [id number]-[id number] conditions may have not been evaluated; therefore, you need to follow up with a primary care provider in the next 48h. If symptoms persist, worsen or new symptoms develop, then patient should return to the ED immediately. Call your primary care doctor TOMORROW for an appointment during the next 2-4 days and bring all the information provided. Have prescriptions filled and follow precisely the directions on the label. If the symptoms get worse and your provider is unavailable, return to the Emergency Department immediately. VIKI SOSA MD Dec 21, 2018 12:50
[2018-12-21] MEDS ORDERED: DIPHTH/TET/ACEL PERTUSS (ADULT) 0.5 ML VIAL IM* ONE (13:00)
[2018-12-21 14:10] VITALS: BP 142/70; PULSE 79; RESP 20
== END 2018-12-21 14:12 | disposition home or self-care (01) ==
LOC: FTE 11:17
DX: S91.134A Puncture wound without foreign body of right lesser toe(s) without damage to nail, initial encounter (principal); J45.909 Unspecified asthma, uncomplicated; I10 Essential (primary) hypertension; W26.8XXA Contact with other sharp object(s), not elsewhere classified, initial encounter; Y92.9 Unspecified place or not applicable; Z23 Encounter for immunization
CPT/HCPCS: 73660; 90471; 90715

== ENCOUNTER → 2019-01-22 | Outpatient (CLI) | payer BC | END | disposition home or self-care (01) | LOC: LAB 09:38 | PROVIDERS: ATTEND Internal Medicine | DX: R73.03 Prediabetes (principal); E78.5 Hyperlipidemia, unspecified | CPT/HCPCS: 73562; 80053; 80061; 81001; 83036; 85025 ==